=== PATIENT | male | born 1960 | race Caucasian/White ===

== ENCOUNTER 2016-10-20 14:06 | Emergency (ER) | payer MEDICAID ==
--- NOTE | 2016-10-20 14:29 | ER Document Report ---
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 of dr. riley presents today with perisstant "whole" back pain which is worse with movement from top of shoulders to below the waist. He wants something stronger than Ultram which I gave him when he was here in the ER on 10-07. He had arthritis in is t and l spine. He took his xrays to Dr. Riley. He saw the PA who told him to take the pain medications and I gave him and would not prescribe anything stronger. He has seen the tearoom host/hostess Dr. Allen in [facility] in the past. No chest pain or shortness of breath, no abdominal pain. No fever or chills. Associated Symptoms: None Past Medical History - General Information source: Patient - Social History Smoking Status: Never Smoker Frequency of alcohol use: None Drug Abuse: None Lives with: Parents Family History: Reviewed & Not Pertinent Musculoskeltal Medical History: Reports Hx Arthritis, Reports Hx Gout Psychiatric Medical History: Reports: Hx Anxiety, Hx Bipolar Disorder, Hx Depression Surgical Hx: Negative - Immunizations Immunizations up to date: Yes Hx Diphtheria, Pertussis, Tetanus Vaccination: Yes Vertical Provider Document - CONSTITUTIONAL Agree With Documented VS: Yes Exam Limitations: No Limitations General Appearance: No Apparent Distress - INFECTION CONTROL TRAVEL OUTSIDE OF THE [place] IN LAST 30 DAYS: No - RESPIRATORY O2 Sat by Pulse Oximetry: 98 Course - Re-evaluation Re-evalutation: 10/20/16 16:18 Chest x-ray is negative - Vital Signs Vital signs: Temp Pulse Resp BP Pulse Ox 97.8 F 92 18 140/84 H 98 10/20/16 14:15 10/20/16 14:15 10/20/16 14:15 10/20/16 14:15 10/20/16 14:15 Discharge - Discharge Clinical Impression: upper and lower back pain Chronic back pain Qualifiers: Back pain location: back pain in unspecified location Back pain laterality: bilateral Qualified Code(s): M54.9 - Dorsalgia, unspecified Condition: Good Disposition: HOME, SELF-CARE Instructions: Low Back Pain ([facility]), Warm Packs ([facility]), Oral Narcotic Medication ( [facility]), Upper Back Strain ([facility]), Arthritis ([facility]) Additional Instructions: see dr riley for pain management referral to er if worse the emergency room does not treat chronic pain Prescriptions: Hydrocodone Bit/Acetaminophen [Hydrocodon-Acetaminophen 5-325] 1 each PO Q4HP PRN #15 tablet PRN Reason: Referrals: GATO RILEY MD [ACTIVE STAFF] - Follow up tomorrow
[2016-10-20 16:44] VITALS: BP 136/78
== END 2016-10-20 16:44 | disposition home or self-care (01) ==
LOC: ER 14:06
DX: G89.29 Other chronic pain (principal); M54.89 Other dorsalgia; M54.5 Low back pain; M47.9 Spondylosis, unspecified; M1A.9XX0 Chronic gout, unspecified, without tophus (tophi)
CPT/HCPCS: 71020; 99283

== ENCOUNTER 2016-11-26 09:01 | Emergency (ER) | payer MEDICAID ==
--- NOTE | 2016-11-26 11:32 | ER Document Report ---
ED Extremity Problem, Upper <JOSIAH JAIN - Last Filed: 11/26/16 11:40> - General Mode of Arrival: Ambulatory Information source: Patient TRAVEL OUTSIDE OF THE [place] IN LAST 30 DAYS: No - HPI Patient complains to provider of: Left, Arm Recent injury: No Quality of pain: Achy Similar symptoms previously: Yes <BRAYDON ZUNIGA - Last Filed: 11/26/16 12:57> - General Chief Complaint: Arm Pain Stated Complaint: PAIN IN LEFT ARM Notes: Patient is a 56-year-old male that presents to the emergency department today with complaints of left upper extremity pain. Patient states his pain began yesterday and he believes it is a gout flareup because he has a history of gout. Patient states he came to the emergency department yesterday however there were "too many people here" so he left. Patient points to his forearm musculature when indicating where his pain is located. (BRAYDON ZUNIGA) - Related Data Allergies/Adverse Reactions: No Known Allergies Allergy (Verified 11/26/16 09:15) Past Medical History - General Information source: Patient - Social History Smoking Status: Never Smoker Cigarette use (# per day): No Chew tobacco use (# tins/day): No Frequency of alcohol use: None Drug Abuse: None Lives with: Family Family History: Reviewed & Not Pertinent Patient has suicidal ideation: No Patient has homicidal ideation: No Musculoskeltal Medical History: Reports Hx Arthritis, Reports Hx Gout Psychiatric Medical History: Reports: Hx Anxiety, Hx Bipolar Disorder, Hx Depression Surgical Hx: Negative - Immunizations Immunizations up to date: Yes Hx Diphtheria, Pertussis, Tetanus Vaccination: Yes <BRAYDON ZUNIGA - Last Filed: 11/26/16 12:57> Review of Systems - Review of Systems Constitutional: No symptoms reported EENT: No symptoms reported Cardiovascular: No symptoms reported Respiratory: No symptoms reported Gastrointestinal: No symptoms reported Genitourinary: No symptoms reported Male Genitourinary: No symptoms reported Musculoskeletal: See HPI, Joint pain - left upper extremity pain from shoulder to wrist Skin: No symptoms reported Hematologic/Lymphatic: No symptoms reported Neurological/Psychological: No symptoms reported -: Yes All other systems reviewed and negative <BRAYDON ZUNIGA - Last Filed: 11/26/16 12:57> Physical Exam - Vital signs Interpretation: Normal - General General appearance: Appears well, Alert In distress: None - HEENT Head: Normocephalic, Atraumatic Eyes: Normal Pupils: PERRL Neck: Normal - Respiratory Respiratory status: No respiratory distress Breath sounds: Normal - Cardiovascular Rhythm: Regular - Abdominal Inspection: Normal - Back Back: Normal - Extremities General upper extremity: Other - Left wrist elbow and shoulder do not have any effusion, swelling, warmth, or tenderness to manipulate. Left proximal dorsal forearm muscles are a little tender to palpate. There is some minimal tenderness to palpate over the lateral upper arm and deltoid. General lower extremity: Normal inspection - Neurological Neuro grossly intact: Yes - Psychological Associated symptoms: Normal affect, Normal mood - Skin Skin Temperature: Warm Skin Moisture: Dry Skin Color: Normal <JOSIAH JAIN - Last Filed: 11/26/16 11:40> Discharge <JOSIAH JAIN - Last Filed: 11/26/16 11:40> <BRAYDON ZUNIGA - Last Filed: 11/26/16 12:57> - Discharge Clinical Impression: Left arm pain Condition: Stable Disposition: HOME, SELF-CARE Additional Instructions: Your left upper extremity pain does not appear to be related to gout today. There is no pain or swelling of any of the joints. Your more tender in the muscles of the forearm than anywhere else. You should continue your regular medications, rest the arm, and follow-up with your primary care provider if not improving. Referrals: GATO DAVIS MD [ACTIVE STAFF] - Follow up as needed Scribe Attestation: 11/26/16 11:36 I personally performed the services described in the documentation, reviewed and edited the documentation which was dictated to the scribe in my presence, and it accurately records my words and actions. (JOSIAH JAIN) Scribe Documentation - Scribe Written by Barbara:: Barbara Bhakta, [id number] 11/26/16 acting as scribe for :: Vinh <BRAYDON ZUNIGA - Last Filed: 11/26/16 12:57>
[2016-11-26 12:22] VITALS: BP 132/88
== END 2016-11-26 12:00 | disposition home or self-care (01) ==
LOC: ER 09:01
DX: M79.602 Pain in left arm (principal)
CPT/HCPCS: 99283

== ENCOUNTER 2017-01-26 20:30 | Emergency (ER) | payer MEDICAID ==
--- NOTE | 2017-01-26 20:50 | EKG REPORT ---
SEVERITY:- ABNORMAL ECG - SINUS RHYTHM PROBABLE INFERIOR INFARCT, OLD : Confirmed by: Tomas Blanc 26-Jan-2017 20:48:31
[2017-01-26 21:50] LABS: ABSOLUTE EOSINOPHILS # (AUTO) 0.2 10^3/uL (0.0-0.6); ABSOLUTE LYMPHOCYTES (AUTO) 3.6 10^3/uL (0.5-4.7); ABSOLUTE MONOCYTES (AUTO) 0.8 10^3/uL (0.1-1.4); ABSOLUTE NEUT (AUTO) 3.6 10^3/uL (1.7-8.2); BASOPHILS % (AUTO) 0.5 % (0-2); HEMATOCRIT 39.4 % (37.9-51.0); HEMOGLOBIN 13.1 g/dL (13.5-17.0); HGB HCT DIFFERENCE -0.1; LYMPHOCYTES % (AUTO) 43.9 % (13-45); MEAN CORPUSCULAR HEMOGLOBIN 30.6 pg (27.0-33.4); MEAN CORPUSCULAR HGB CONC 33.3 g/dL (32.0-36.0); MEAN CORPUSCULAR VOLUME 92 fl (80-97); MONOCYTES % (AUTO) 9.5 % (3-13); RED BLOOD COUNT 4.29 10^6/uL (4.35-5.55); SEGMENTED NEUTROPHILS % (AUTO) 43.1 % (42-78); WHITE BLOOD COUNT 8.3 10^3/uL (4.0-10.5)
[2017-01-26 21:56] LABS: ALANINE AMINOTRANSFERASE 24 U/L (21-72); ALBUMIN 3.7 g/dL (3.5-5.0); ALKALINE PHOSPHATASE 81 U/L (38-126); ANION GAP 11 (5-19); ASPARTATE AMINO TRANSFERASE 18 U/L (17-59); BILIRUBIN,DIRECT 0.2 mg/dL (0.0-0.4); BILIRUBIN,TOTAL 0.3 mg/dL (0.2-1.3); BLOOD UREA NITROGEN 11 mg/dL (7-20); CALCIUM 9.4 mg/dL (8.4-10.2); CARBON DIOXIDE 26 mmol/L (22-30); CHLORIDE 106 mmol/L (98-107); CREATININE RESULT 0.82 mg/dL (0.52-1.25); GLUCOSE 91 mg/dL (75-110); POTASSIUM 4.9 mmol/L (3.6-5.0); SODIUM 143.1 mmol/L (137-145); TOTAL PROTEIN 6.2 g/dL (6.3-8.2)
--- NOTE | 2017-01-26 22:49 | ER Document Report ---
ED General - General Chief Complaint: Chest Pain Stated Complaint: CHEST WALL PAIN Notes: Patient is a 56-year-old male presents with complaint of chest pain which has been ongoing for 5 days. He says the pain is in his left upper chest and radiates back to fish shoulder blade. Does radiate around his ribs as well. His pain is worse with certain movements. Says he does have a history of gout. He is unsure if the chest pain is from the gout or from something else. He has no history of coronary disease. He had negative chronic stress test in March 2016. No fevers or infections. No difficulty breathing. Former drinker. TRAVEL OUTSIDE OF THE [place] IN LAST 30 DAYS: No - Related Data Allergies/Adverse Reactions: No Known Allergies Allergy (Verified 11/26/16 09:15) Past Medical History - Social History Smoking Status: Never Smoker Frequency of alcohol use: None Drug Abuse: None Family History: Reviewed & Not Pertinent Patient has suicidal ideation: No Patient has homicidal ideation: No - Past Medical History Cardiac Medical History: Denies: Hx Coronary Artery Disease, Hx Heart Attack, Hx Hypertension Pulmonary Medical History: Denies: Hx Asthma, Hx Bronchitis, Hx COPD, Hx Pneumonia Neurological Medical History: Denies: Hx Cerebrovascular Accident, Hx Seizures Renal/ Medical History: Denies: Hx Peritoneal Dialysis Musculoskeltal Medical History: Reports Hx Arthritis, Reports Hx Gout Psychiatric Medical History: Reports: Hx Anxiety, Hx Bipolar Disorder, Hx Depression - Immunizations Immunizations up to date: Yes Hx Diphtheria, Pertussis, Tetanus Vaccination: Yes Review of Systems - Review of Systems Notes: My Normal Review Basic REVIEW OF SYSTEMS: CONSTITUTIONAL : Denies fever, chills, or sweats. Denies recent illness. CARDIOVASCULAR: Chest pain RESPIRATORY: Denies cough, cold, or chest congestion. Denies shortness of breath, difficulty breathing, or wheezing. GASTROINTESTINAL: Denies abdominal pain. Denies nausea, vomiting, or diarrhea. Denies constipation. Last BM: GENITOURINARY: Denies difficulty urinating, painful urination, burning, frequency, or blood in urine. MUSCULOSKELETAL: Pain over left upper chest wall SKIN: Denies rash or skin lesions. NEUROLOGICAL: Denies altered mental status or loss of consciousness. Denies headache. Denies weakness or paralysis or loss of use of either side. Denies problems with gait or speech. Denies sensory or motor loss. ALL OTHER SYSTEMS REVIEWED AND NEGATIVE. Physical Exam - Vital signs Vitals: Temp Pulse Resp BP Pulse Ox 97.4 F 67 18 122/80 97 01/26/17 20:50 01/26/17 20:50 01/26/17 20:50 01/26/17 20:50 01/26/17 20:50 Course - Vital Signs Vital signs: Temp Pulse Resp BP Pulse Ox 97.4 F 67 18 122/80 97 01/26/17 20:50 01/26/17 20:50 01/26/17 20:50 01/26/17 20:50 01/26/17 20:50 - Laboratory Result Diagrams: 01/26/17 21:20 01/26/17 21:20 Laboratory results interpreted by me: 01/26/17 01/26/17 01/26/17 21:20 21:20 21:20 RBC 4.29 L Hgb 13.1 L Uric Acid 2.3 L Total Protein 6.2 L - EKG Interpretation by Me Additional EKG results interpreted by me: 01/26/17 22:48 EKG is reviewed and interpreted by me. EKG shows normal sinus rhythm with rate of [address] segment elevation or depression. No ischemic T wave inversions. NH interval, QRS duration, QTC intervals are within normal range. No old EKG available for comparison. - Transfer of Care Notes: 01/27/17 00:09 Patient's chest pain seems very muscle skeletal exam. Is easily reproducible with palpation and movement. I do not suspect coronary disease. His heart score is only 2. He looks well. I do not think it's gout. History of gas levels low and his pain is not not area that you typically expect with gout. At this time I feel he is safe to be discharged home. He had a recent stress test in March of last year, only 10 months ago. I will follow up closely with his primary care doctor. I encouraged return to ER if has changed location of his chest pain, worsening pain, or feels unwell. Patient looks very comfortable and well and exam. Patient agrees with plan. Dictation of this chart was performed using voice recognition software; therefore, there may be some unintended grammatical errors. Discharge - Discharge Clinical Impression: Chest pain Qualifiers: Chest pain type: unspecified Qualified Code(s): R07.9 - Chest pain, unspecified Condition: Good Disposition: HOME, SELF-CARE Additional Instructions: CHEST PAIN OF UNCLEAR CAUSE: The exact cause of your chest pain isn't clear. Fortunately, there is no evidence of a dangerous medical condition. Further testing may be required to find the source of the pain. Most often, we find that this pain is coming from the chest wall -- the muscles or rib joints in the chest. But chest pain can come from the lung and lung lining, the esophagus, the heart valves or heart lining, and even the stomach or gallbladder. Rest. Eat lightly until the pain is gone. We may prescribe medicine for pain and inflammation. You should call the physician immediately if the pain radiates to the shoulder, jaw or arms; if you start to run a fever or develop a cough; or if you develop shortness of breath, or other new or alarming symptoms. NORMAL EXAM AND WORKUP: At this time, your examination and workup show no significant abnormality. No significant abnormal physical findings were noted. All laboratory, EKG, and imaging (x-ray) studies that were ordered show no significant abnormality. Although your examination and all studies that were ordered showed no significant abnormal finding, there are no examinations and no studies that are 100% accurate. There is always the possibility that some abnormality could exist and not be detected with physical examination or within the limits and capabilities of laboratory and other studies. You should return or follow up as you were instructed on your visit today for further evaluation if your symptoms do not resolve. CHEST WALL PAIN: Your chest pain may be coming from the chest wall. This is often caused by straining the muscles or joints in the chest during physical activity, direct trauma, coughing, or vigorous vomiting. Persons with arthritis are especially prone to this type of pain, due to inflammation of the cartilage joints near the breast bone. Occasionally, no cause can be found. Rest from strenuous physical activity. This kind of chest pain is usually made worse by movement of the chest. Depending on the symptoms, we may prescribe medicine for pain, muscle relaxation, and antiinflammatory effects. If the pain is new, and seems to be due to muscle strain, cold packs can help. Otherwise, apply gentle warmth to the painful area for 15 minutes every hour or two. You should call contact the doctor immediately if things change. Further evaluation is needed if you develop a fever or cough, if the nature of the pain changes, or if you become short of breath. ORAL NARCOTIC MEDICATION: You have been given a prescription for pain control. This medication is a narcotic. It's best taken with food, as nausea can result if taken on an empty stomach. Don't operate machinery or drive within six hours of taking this medication. Do not combine this medicine with alcohol, or with any medication which can cause sedation (such as cold tablets or sleeping pills) unless you get permission from the physician. Narcotics tend to cause constipation. If possible, drink plenty of fluids and eat a diet high in fiber and fruits. Please be aware that prescription narcotics also have the potential for abuse. People become addicted to these medications because of the general sense of wellbeing that they induce. This feeling along with a significant reduction in tension, anxiety, and aggression provides a stimulating seductive quality to these drugs. Once your pain is under control, we encourage you to discard your unused narcotics. FOLLOW-UP CARE: If you have been referred to a physician for follow-up care, call the physician s office for an appointment as you were instructed or within the next two days. If you experience worsening or a significant change in your symptoms, notify the physician immediately or return to the Emergency Department at any time for re-evaluation. Please follow up closely with your doctor for reevaluation in 2-3 days. please return to the ER immediately if you have worse ing pain, difficulty breathing, or change of location of the pain in your chest. Prescriptions: Tramadol HCl [Ultram] 50 mg PO Q6 PRN #14 tablet PRN Reason: For Pain Scale 3-5 Referrals: SPEEDY JAMES NP-C [Primary Care Provider] - 01/28/17
[2017-01-26 23:26] LABS: URIC ACID 2.3 mg/dL (3.5-8.5)
[2017-01-26 23:39] LABS: CREATINE KINASE MB 0.99 ng/mL (<4.55)
[2017-01-26 23:41] LABS: TROPONIN I < 0.012 ng/mL
[2017-01-27 00:31] VITALS: BP 130/87
== END 2017-01-27 00:30 | disposition home or self-care (01) ==
LOC: ER 20:30
DX: R07.89 Other chest pain (principal); Z87.39 Personal history of other diseases of the musculoskeletal system and connective tissue
CPT/HCPCS: 36415; 71010; 80053; 82550; 82553; 83605; 84484; 84550; 85025; 93005; 93010; 99285

== ENCOUNTER 2018-02-04 05:56 | Emergency (ER) | payer MEDICAID ==
[2018-02-04] MEDS ORDERED: PREDNISONE 20 MG TABLET PO ONE (06:33)
[2018-02-04] MEDS ORDERED: KETOROLAC TROMETHAMINE 60 MG/2 ML SDV IM ONE (06:34)
--- NOTE | 2018-02-04 06:37 | ER Document Report ---
ED General - General Chief Complaint: Knee Pain Stated Complaint: BODY PAIN Time Seen by Provider: 02/04/18 06:18 TRAVEL OUTSIDE OF THE [place] IN LAST 30 DAYS: No - Related Data Allergies/Adverse Reactions: No Known Allergies Allergy (Verified 11/26/16 09:15) Past Medical History - Social History Smoking Status: Never Smoker Chew tobacco use (# tins/day): No Frequency of alcohol use: None Drug Abuse: None Family History: Reviewed & Not Pertinent Patient has suicidal ideation: No Patient has homicidal ideation: No - Past Medical History Cardiac Medical History: Denies: Hx Coronary Artery Disease, Hx Heart Attack, Hx Hypertension Pulmonary Medical History: Denies: Hx Asthma, Hx Bronchitis, Hx COPD, Hx Pneumonia Neurological Medical History: Denies: Hx Cerebrovascular Accident, Hx Seizures Renal/ Medical History: Denies: Hx Peritoneal Dialysis Musculoskeltal Medical History: Reports Hx Arthritis, Reports Hx Gout Psychiatric Medical History: Reports: Hx Anxiety, Hx Bipolar Disorder, Hx Depression - Immunizations Immunizations up to date: Yes Hx Diphtheria, Pertussis, Tetanus Vaccination: Yes Physical Exam - Vital signs Vitals: Temp Pulse Resp BP Pulse Ox 97.7 F 106 H 18 136/81 H 95 02/04/18 06:03 02/04/18 06:03 02/04/18 06:03 02/04/18 06:03 02/04/18 06:03 Course - Vital Signs Vital signs: Temp Pulse Resp BP Pulse Ox 97.7 F 106 H 18 136/81 H 95 02/04/18 06:03 02/04/18 06:03 02/04/18 06:03 02/04/18 06:03 02/04/18 06:03 Discharge - Discharge Clinical Impression: Gout Qualifiers: Gout site: unspecified site Gout etiology: unspecified cause Chronicity: unspecified Qualified Code(s): M10.9 - Gout, unspecified Condition: Good Instructions: Ice & Elevation ([facility]), Oral Narcotic Medication ([facility]), Gout Diet ([facility]), Gout ([facility]) Additional Instructions: Your evaluation today is consistent with a gout flare. Please continue your home medication take prednisone as prescribed he may take the hydrocodone to for pain control please do not mix Hydrocodone with your tramadol return to ER if symptoms worsen. Prescriptions: Hydrocodone/Acetaminophen [Hydrocodon-Acetaminophen 5-325] 1 each PO Q6 PRN #10 tablet PRN Reason: Prednisone [Deltasone] 60 mg PO DAILY #24 tablet
[2018-02-04 06:59] VITALS: BP 125/94
--- NOTE | 2018-02-04 07:08 | ER Document Report ---
ED General - General Chief Complaint: Knee Pain Stated Complaint: BODY PAIN Time Seen by Provider: 02/04/18 06:18 TRAVEL OUTSIDE OF THE [place] IN LAST 30 DAYS: No - HPI Patient complains to provider of: Body pain knee pain foot pain Notes: Patient coming in with a history of diffuse gout states most pain left foot. Patient states ongoing for the last few days recently saw his PCP requesting cortisone however PCP request patient see his groundman for present medication patient states he is taking his allopurinol and indomethacin at home with no relief. Also states he is on tramadol with no relief in his pain. Otherwise denies fevers chills nausea vomiting resting comfortably, evaluation. - Related Data Allergies/Adverse Reactions: No Known Allergies Allergy (Verified 11/26/16 09:15) Past Medical History - Social History Smoking Status: Never Smoker Chew tobacco use (# tins/day): No Frequency of alcohol use: None Drug Abuse: None Family History: Reviewed & Not Pertinent Patient has suicidal ideation: No Patient has homicidal ideation: No - Past Medical History Cardiac Medical History: Denies: Hx Coronary Artery Disease, Hx Heart Attack, Hx Hypertension Pulmonary Medical History: Denies: Hx Asthma, Hx Bronchitis, Hx COPD, Hx Pneumonia Neurological Medical History: Denies: Hx Cerebrovascular Accident, Hx Seizures Renal/ Medical History: Denies: Hx Peritoneal Dialysis Musculoskeltal Medical History: Reports Hx Arthritis, Reports Hx Gout Psychiatric Medical History: Reports: Hx Anxiety, Hx Bipolar Disorder, Hx Depression - Immunizations Immunizations up to date: Yes Hx Diphtheria, Pertussis, Tetanus Vaccination: Yes Review of Systems - Review of Systems Constitutional: No symptoms reported EENT: No symptoms reported Cardiovascular: No symptoms reported Respiratory: No symptoms reported Gastrointestinal: No symptoms reported Genitourinary: No symptoms reported Male Genitourinary: No symptoms reported Musculoskeletal: Gout Skin: No symptoms reported Hematologic/Lymphatic: No symptoms reported Neurological/Psychological: No symptoms reported -: Yes All other systems reviewed and negative Physical Exam - Vital signs Vitals: Temp Pulse Resp BP Pulse Ox 97.7 F 106 H 18 136/81 H 95 02/04/18 06:03 02/04/18 06:03 02/04/18 06:03 02/04/18 06:03 02/04/18 06:03 Interpretation: Normal - General General appearance: Appears well, Alert - HEENT Head: Normocephalic, Atraumatic Eyes: Normal Pupils: PERRL - Respiratory Respiratory status: No respiratory distress Chest status: Nontender Breath sounds: Normal Chest palpation: Normal - Cardiovascular Rhythm: Regular Heart sounds: Normal auscultation Murmur: No - Abdominal Inspection: Normal Distension: No distension Bowel sounds: Normal Tenderness: Nontender Organomegaly: No organomegaly - Back Back: Normal, Nontender - Extremities General upper extremity: Normal inspection, Nontender, Normal color, Normal ROM , Normal temperature General lower extremity: Nontender, Normal color, Normal ROM, Normal temperature , Normal weight bearing. No: Normal inspection - Redness and swelling in the MCP joint consistent with gout on the left foot, Franky's sign - Neurological Neuro grossly intact: Yes Cognition: Normal Orientation: AAOx4 Aladdin Coma Scale Eye Opening: Spontaneous Aladdin Coma Scale Verbal: Oriented Aladdin Coma Scale Motor: Obeys Commands Sara Coma Scale Total: 15 Speech: Normal Motor strength normal: LUE, RUE, LLE, RLE Sensory: Normal - Psychological Associated symptoms: Normal affect, Normal mood - Skin Skin Temperature: Warm Skin Moisture: Dry Skin Color: Normal Course - Re-evaluation Re-evalutation: 02/04/18 07:06 Patient has signs or symptoms of acute gout attack will start patient on a prednisone taper along with will give the patient 10 hydrocodone for his pain. Patient was encouraged follow-up with his PCP and groundman. - Vital Signs Vital signs: Temp Pulse Resp BP Pulse Ox 97.3 F 104 H 16 125/94 H 95 02/04/18 06:58 02/04/18 06:58 02/04/18 06:58 02/04/18 06:58 02/04/18 06:58 Discharge - Discharge Clinical Impression: Gout Qualifiers: Gout site: unspecified site Gout etiology: unspecified cause Chronicity: unspecified Qualified Code(s): M10.9 - Gout, unspecified Condition: Good Instructions: Gout ([facility]), Gout Diet ([facility]), Ice & Elevation ([facility]), Oral Narcotic Medication ([facility]) Additional Instructions: Your evaluation today is consistent with a gout flare. Please continue your home medication take prednisone as prescribed he may take the hydrocodone to for pain control please do not mix Hydrocodone with your tramadol return to ER if symptoms worsen. Prescriptions: Hydrocodone/Acetaminophen [Hydrocodon-Acetaminophen 5-325] 1 each PO Q6 PRN #10 tablet PRN Reason: Prednisone [Deltasone] 60 mg PO DAILY #24 tablet Referrals: SETH BOWEN PA-C [NO LOCAL MD] - Follow up as needed
== END 2018-02-04 06:59 | disposition home or self-care (01) ==
LOC: ER 05:56
DX: M10.9 Gout, unspecified (principal); M25.569 Pain in unspecified knee; M79.1 Myalgia; M79.672 Pain in left foot
CPT/HCPCS: 99283; 96372; J1885; J7512

== ENCOUNTER 2018-02-19 05:41 | Emergency (ER) | payer MEDICAID ==
--- NOTE | 2018-02-19 06:27 | ER Document Report ---
ED General - General Chief Complaint: High Blood Pressure Stated Complaint: HIGH BLOOD PRESSURE Time Seen by Provider: 02/19/18 06:17 Notes: 57-year-old male with history of gout. History of hypertension. Has been having a gout flareup for the last couple of days. Has not been taking any of his medications. Blood pressure is a little high according to patient. Denies any chest pain or shortness of breath. Pain is mostly in the left great toe. TRAVEL OUTSIDE OF THE [place] IN LAST 30 DAYS: No - HPI Onset: Yesterday Onset/Duration: Intermittent, Worse Quality of pain: Throbbing - Related Data Allergies/Adverse Reactions: No Known Allergies Allergy (Verified 11/26/16 09:15) Past Medical History - General Information source: Patient - Social History Smoking Status: Former Smoker Cigarette use (# per day): No Frequency of alcohol use: None Drug Abuse: None Lives with: Family Family History: Reviewed & Not Pertinent - Past Medical History Cardiac Medical History: Denies: Hx Coronary Artery Disease, Hx Heart Attack, Hx Hypertension Pulmonary Medical History: Denies: Hx Asthma, Hx Bronchitis, Hx COPD, Hx Pneumonia Neurological Medical History: Denies: Hx Cerebrovascular Accident, Hx Seizures Renal/ Medical History: Denies: Hx Peritoneal Dialysis Musculoskeltal Medical History: Reports Hx Arthritis, Reports Hx Gout Psychiatric Medical History: Reports: Hx Anxiety, Hx Bipolar Disorder, Hx Depression - Immunizations Immunizations up to date: Yes Hx Diphtheria, Pertussis, Tetanus Vaccination: Yes Review of Systems - Review of Systems Constitutional: No symptoms reported EENT: No symptoms reported Cardiovascular: No symptoms reported Respiratory: No symptoms reported Gastrointestinal: No symptoms reported Genitourinary: No symptoms reported Male Genitourinary: No symptoms reported Musculoskeletal: See HPI, Other - Pain, toe pain. Skin: No symptoms reported Hematologic/Lymphatic: No symptoms reported Neurological/Psychological: No symptoms reported Physical Exam - Vital signs Vitals: Temp Pulse Resp BP Pulse Ox 97.8 F 82 16 129/98 H 95 02/19/18 05:55 02/19/18 05:55 02/19/18 05:55 02/19/18 05:55 02/19/18 05:55 Interpretation: Normal - General General appearance: Appears well, Alert - HEENT Head: Normocephalic, Atraumatic Eyes: Normal Pupils: PERRL - Respiratory Respiratory status: No respiratory distress Chest status: Nontender Breath sounds: Normal Chest palpation: Normal - Cardiovascular Rhythm: Regular Heart sounds: Normal auscultation Murmur: No - Abdominal Inspection: Normal Distension: No distension Bowel sounds: Normal Tenderness: Nontender Organomegaly: No organomegaly - Back Back: Normal, Nontender - Extremities General upper extremity: Normal inspection, Nontender, Normal color, Normal ROM , Normal temperature General lower extremity: Normal inspection, Nontender, Normal color, Normal ROM , Normal temperature, Normal weight bearing, Other - Mild tenderness to palpation left great toe. No: Edema, Franky's sign - Neurological Neuro grossly intact: Yes Cognition: Normal Orientation: AAOx4 Sara Coma Scale Eye Opening: Spontaneous Sara Coma Scale Verbal: Oriented Prewitt Coma Scale Motor: Obeys Commands Sara Coma Scale Total: 15 Speech: Normal Motor strength normal: LUE, RUE, LLE, RLE Sensory: Normal - Psychological Associated symptoms: Normal affect, Normal mood - Skin Skin Temperature: Warm Skin Moisture: Dry Skin Color: Normal Course - Re-evaluation Re-evalutation: 02/19/18 06:39 Patient with long history of gout. Has all the medications as needed. Has colchicine. Has indomethacin. Recommend that he takes cursing at this time. Recommended he start his indomethacin. We will give him some steroids and shot of fentanyl and 1 hydrocodone and will DC. - Vital Signs Vital signs: Temp Pulse Resp BP Pulse Ox 97.6 F 84 18 124/87 H 99 02/19/18 08:09 02/19/18 08:09 02/19/18 08:09 02/19/18 08:09 02/19/18 08:09 Discharge - Discharge Clinical Impression: Gout Qualifiers: Gout site: foot Gout etiology: unspecified cause Chronicity: chronic Laterality : left Qualified Code(s): M1A.0720 - Idiopathic chronic gout, left ankle and foot, without tophus (tophi) Condition: Good Disposition: HOME, SELF-CARE Instructions: Gout ([facility]), Gout Diet ([facility])
[2018-02-19] MEDS ORDERED: METHYLPREDNISOLONE INJ 125 MG/2 ML SDV IM ONE (06:38)
[2018-02-19] MEDS ORDERED: HYDROCODONE/ACETAMINOPHEN 5-325 MG TABLET PO ONE (06:38)
[2018-02-19] MEDS ORDERED: FENTANYL CITRATE INJ/PF 100 MCG/2 ML AMPUL IM ONE (06:38)
[2018-02-19 08:10] VITALS: BP 124/87
== END 2018-02-19 08:07 | disposition home or self-care (01) ==
LOC: ER 05:41
DX: M1A.0720 Idiopathic chronic gout, left ankle and foot, without tophus (tophi) (principal); I10 Essential (primary) hypertension; Z87.891 Personal history of nicotine dependence
CPT/HCPCS: 99283; 96372; 96374; J3010; J2930

== ENCOUNTER → 2018-02-19 | Outpatient (CLI) | payer MEDICAID ==
[2018-02-19 13:22] LABS: ALANINE AMINOTRANSFERASE 25 U/L (21-72); ALBUMIN 4.4 g/dL (3.5-5.0); ALKALINE PHOSPHATASE 81 U/L (38-126); ANION GAP 13 (5-19); ASPARTATE AMINO TRANSFERASE 20 U/L (17-59); BILIRUBIN,DIRECT 0.3 mg/dL (0.0-0.4); BILIRUBIN,TOTAL 0.3 mg/dL (0.2-1.3); BLOOD UREA NITROGEN 19 mg/dL (7-20); CALCIUM 10.1 mg/dL (8.4-10.2); CARBON DIOXIDE 27 mmol/L (22-30); CHLORIDE 107 mmol/L (98-107); GLUCOSE 101 mg/dL (75-110); POTASSIUM 4.8 mmol/L (3.6-5.0); SODIUM 146.5 mmol/L (137-145); TOTAL PROTEIN 7.4 g/dL (6.3-8.2); URIC ACID 2.7 mg/dL (3.5-8.5)
== END ==
LOC: OD 12:31
PROVIDERS: ATTEND Internal Medicine Geriatric Medicine
DX: M1A.0211 Idiopathic chronic gout, right elbow, with tophus (tophi) (principal); I10 Essential (primary) hypertension
CPT/HCPCS: 36415; 80053; 84550

== ENCOUNTER 2018-05-08 06:20 | Emergency (ER) | payer MEDICAID ==
[2018-05-08] MEDS ORDERED: DEXAMETHASONE SOD PHOS INJ 10 MG/1 ML VIAL IM ONE (07:30)
--- NOTE | 2018-05-08 07:30 | ER Document Report ---
ED Extremity Problem, Upper - General Chief Complaint: Arm Pain Stated Complaint: LEFT ARM PAIN Time Seen by Provider: 05/08/18 07:19 Mode of Arrival: Ambulatory Information source: Patient Notes: Patient is a 58-year-old male with a history of gout who presents to the ER today for left elbow and shoulder pain that started approximately 3 weeks ago. Patient states that he is on colchicine, Uloric and Indocin for his gout which are not helping. He states that he tries to stay away from all bad gout foods and does not know what he may have eaten lately that could have caused this gout flare. He states that he has gout flares "all the time." Patient states prednisone usually helps. He denies any injury. He denies any fevers or chills. TRAVEL OUTSIDE OF THE [place] IN LAST 30 DAYS: No - Related Data Allergies/Adverse Reactions: No Known Allergies Allergy (Verified 11/26/16 09:15) Past Medical History - General Information source: Patient - Social History Smoking Status: Never Smoker Family History: Reviewed & Not Pertinent Patient has suicidal ideation: No Patient has homicidal ideation: No - Past Medical History Cardiac Medical History: Denies: Hx Coronary Artery Disease, Hx Heart Attack, Hx Hypertension Pulmonary Medical History: Denies: Hx Asthma, Hx Bronchitis, Hx COPD, Hx Pneumonia Neurological Medical History: Denies: Hx Cerebrovascular Accident, Hx Seizures Renal/ Medical History: Denies: Hx Peritoneal Dialysis Musculoskeletal Medical History: Reports Hx Arthritis, Reports Hx Gout Psychiatric Medical History: Reports: Hx Anxiety, Hx Bipolar Disorder, Hx Depression - Immunizations Immunizations up to date: Yes Hx Diphtheria, Pertussis, Tetanus Vaccination: Yes Review of Systems - Review of Systems Constitutional: No symptoms reported EENT: No symptoms reported Cardiovascular: No symptoms reported Respiratory: No symptoms reported Gastrointestinal: No symptoms reported Genitourinary: No symptoms reported Male Genitourinary: No symptoms reported Musculoskeletal: See HPI Skin: No symptoms reported Hematologic/Lymphatic: No symptoms reported Neurological/Psychological: No symptoms reported Physical Exam - Vital signs Vitals: Temp Pulse Resp BP Pulse Ox 97.8 F 79 16 112/64 93 05/08/18 06:24 05/08/18 06:24 05/08/18 06:24 05/08/18 06:24 05/08/18 06:24 - Notes Notes: PHYSICAL EXAMINATION: GENERAL: Well-appearing and in no acute distress. HEAD: Atraumatic, normocephalic. EYES: Pupils equal round and reactive to light, extraocular movements intact, sclera anicteric, conjunctiva are normal. NECK: Normal range of motion, supple without lymphadenopathy LUNGS: CTAB and equal. No wheezes rales or rhonchi. HEART: Regular rate and rhythm without murmurs EXTREMITIES: Mild tenderness to the left dorsal elbow and anterior shoulder, otherwise normal range of motion, no pitting edema. No cyanosis. NEUROLOGICAL: Cranial nerves grossly intact. Normal sensory/motor exams. PSYCH: Normal mood, normal affect. SKIN: Warm, Dry, normal turgor, no rashes or lesions noted Course - Vital Signs Vital signs: Temp Pulse Resp BP Pulse Ox 97.4 F 61 18 124/83 98 05/08/18 07:54 05/08/18 07:54 05/08/18 07:54 05/08/18 07:54 05/08/18 07:54 Discharge - Discharge Clinical Impression: Gout Qualifiers: Gout site: multiple sites Gout etiology: unspecified cause Chronicity: acute Qualified Code(s): M10.9 - Gout, unspecified Condition: Stable Disposition: HOME, SELF-CARE Additional Instructions: Return immediately for any new or worsening symptoms. Follow up with primary care provider, call tomorrow to make followup appointment. Prescriptions: Prednisone 10 mg PO DAILY #1 [id number] Referrals: GATO DAVIS MD [Primary Care Provider] - Follow up as needed
[2018-05-08 07:56] VITALS: BP 124/83
== END 2018-05-08 07:56 | disposition home or self-care (01) ==
LOC: ER 06:20
DX: M10.9 Gout, unspecified (principal); M25.522 Pain in left elbow; M25.512 Pain in left shoulder; Z79.899 Other long term (current) drug therapy; Z79.1 Long term (current) use of non-steroidal anti-inflammatories (NSAID)
CPT/HCPCS: 99283; 96372; J1100

== ENCOUNTER 2018-11-22 09:53 | Emergency (ER) | payer MEDICAID ==
[2018-11-22 10:01] VITALS: BP 113/72
[2018-11-22] MEDS ORDERED: DEXAMETHASONE SOD PHOS INJ 10 MG/1 ML VIAL IM ONE (10:06)
--- NOTE | 2018-11-22 10:10 | ER Document Report ---
ED General - General Chief Complaint: Pain All Over Stated Complaint: BLOOD PRESSURE ISSUE Time Seen by Provider: 11/22/18 10:05 Primary Care Provider: GATO DAVIS MD [Primary Care Provider] - Follow up as needed TRAVEL OUTSIDE OF THE [place] IN LAST 30 DAYS: No - HPI Patient complains to provider of: Blood pressure concern body pain Notes: Patient coming in stating his blood pressure has been elevated liver last few days. Patient is drinking [employer] T patient states he has not been watching his diet well he has been drinking a lot of water. Patient denies missing any of his medications. At this time patient's blood pressure looks to be within normal limits. Patient also is complaining of diffuse body pain consistent with his gout flares in the past. Patient currently is in pain management states he has been compliant with his pain management regimen. Patient is asking for steroid injection. Patient denies any chest pain head pain abdominal pain nausea vomiting diarrhea denies any fevers or chills - Related Data Allergies/Adverse Reactions: No Known Allergies Allergy (Verified 11/22/18 09:54) Past Medical History - Social History Smoking Status: Unknown if Ever Smoked Family History: Reviewed & Not Pertinent Patient has suicidal ideation: No Patient has homicidal ideation: No - Past Medical History Cardiac Medical History: Denies: Hx Coronary Artery Disease, Hx Heart Attack, Hx Hypertension Pulmonary Medical History: Denies: Hx Asthma, Hx Bronchitis, Hx COPD, Hx Pneumonia Neurological Medical History: Denies: Hx Cerebrovascular Accident, Hx Seizures Renal/ Medical History: Denies: Hx Peritoneal Dialysis Musculoskeletal Medical History: Reports Hx Arthritis, Reports Hx Gout Psychiatric Medical History: Reports: Hx Anxiety, Hx Bipolar Disorder, Hx Depression - Immunizations Immunizations up to date: Yes Hx Diphtheria, Pertussis, Tetanus Vaccination: Yes Review of Systems - Review of Systems Constitutional: Other - Elevated blood pressure EENT: No symptoms reported Cardiovascular: No symptoms reported Respiratory: No symptoms reported Gastrointestinal: No symptoms reported Genitourinary: No symptoms reported Male Genitourinary: No symptoms reported Musculoskeletal: Muscle pain Skin: No symptoms reported Hematologic/Lymphatic: No symptoms reported Neurological/Psychological: No symptoms reported -: Yes All other systems reviewed and negative Physical Exam - Vital signs Vitals: Temp Pulse Resp BP Pulse Ox 97.7 F 84 17 113/72 94 11/22/18 10:00 11/22/18 10:00 11/22/18 10:00 11/22/18 10:00 11/22/18 10:00 Interpretation: Normal - General General appearance: Appears well, Alert - HEENT Head: Normocephalic, Atraumatic Eyes: Normal Pupils: PERRL - Respiratory Respiratory status: No respiratory distress Chest status: Nontender Breath sounds: Normal Chest palpation: Normal - Cardiovascular Rhythm: Regular Heart sounds: Normal auscultation Murmur: No - Abdominal Inspection: Normal Distension: No distension Bowel sounds: Normal Tenderness: Nontender Organomegaly: No organomegaly - Back Back: Normal, Nontender - Extremities General upper extremity: Normal inspection, Nontender, Normal color, Normal ROM, Normal temperature General lower extremity: Normal inspection, Nontender, Normal color, Normal ROM, Normal temperature, Normal weight bearing. No: Franky's sign - Neurological Neuro grossly intact: Yes Cognition: Normal Orientation: AAOx4 Sara Coma Scale Eye Opening: Spontaneous Sara Coma Scale Verbal: Oriented Sara Coma Scale Motor: Obeys Commands Gallagher Coma Scale Total: 15 Speech: Normal Motor strength normal: LUE, RUE, LLE, RLE Sensory: Normal - Psychological Associated symptoms: Normal affect, Normal mood - Skin Skin Temperature: Warm Skin Moisture: Dry Skin Color: Normal Course - Re-evaluation Re-evalutation: 11/22/18 10:10 No critical pathology seen on physical examination patient is asking for a long- acting steroid injection will give the patient a dose of Decadron patient will be discharged home. - Vital Signs Vital signs: Temp Pulse Resp BP Pulse Ox 97.7 F 84 17 113/72 94 11/22/18 10:00 11/22/18 10:11/22/18 10:00 11/22/18 10:00 11/22/18 10:00 Discharge - Discharge Clinical Impression: History of hypertension, History of gout Condition: Good Disposition: HOME, SELF-CARE Instructions: Pain Control without Medication ([facility]), Pain Management, High Blood Pressure ([facility]) Additional Instructions: Blood pressure today looks to be within normal limits please continue take your blood pressure medications as prescribed. Please continue take your current medication pain medication regimen at home he was given a long-acting steroid today called Decadron. Return to the ER symptoms worsen. Referrals: GATO DAVIS MD [Primary Care Provider] - Follow up tomorrow
== END 2018-11-22 10:10 | disposition home or self-care (01) ==
LOC: ER 09:53
DX: M79.10 Myalgia, unspecified site (principal)
CPT/HCPCS: 99283; 96372; J1100

== ENCOUNTER 2020-02-26 14:16 | Inpatient (IN) | payer MEDICAID ==
--- NOTE | 2020-02-26 15:11 | ER Document Report ---
ED Fall - General Chief Complaint: Fall Stated Complaint: BACK PAIN Time Seen by Provider: 02/26/20 15:11 Primary Care Provider: GATO DAVIS MD [Primary Care Provider] - Follow up as needed Notes: Patient is a 59-year-old male presents emergency department after a fall. Patient states that he fell last night. He has a automatic chair that helps assist with standing him, and he states that he went to go stand up and fell down to the floor. Patient stayed on the floor for quite a long time and then he was able to get up because he ended up urinating on himself. Patient states that he got up and was able to take shower and then called EMS. Patient also has had some chronic Pain. He also has some edema to his bilateral lower extremities. States that his heel on his left foot is hurting. Its that he has been using Neosporin. TRAVEL OUTSIDE OF THE [place] IN LAST 30 DAYS: No - Related data Allergies/Adverse Reactions: No Known Allergies Allergy (Verified 11/22/18 09:54) Past Medical History - Social History Smoking Status: Unknown if Ever Smoked Family History: Reviewed & Not Pertinent Patient has homicidal ideation: No - Past Medical History Cardiac Medical History: Denies: Hx Coronary Artery Disease, Hx Heart Attack, Hx Hypertension Pulmonary Medical History: Denies: Hx Asthma, Hx Bronchitis, Hx COPD, Hx Pneumonia Neurological Medical History: Denies: Hx Cerebrovascular Accident, Hx Seizures Renal/ Medical History: Denies: Hx Peritoneal Dialysis Musculoskeletal Medical History: Reports Hx Arthritis, Reports Hx Gout Psychiatric Medical History: Reports: Hx Anxiety, Hx Bipolar Disorder, Hx Depression - Immunizations Immunizations up to date: Yes Hx Diphtheria, Pertussis, Tetanus Vaccination: Yes Review of Systems - Review of Systems Notes: REVIEW OF SYSTEMS: CONSTITUTIONAL : Denies recent illness. Denies recent unintentional weight loss. Denies fever, chills, or sweats. EENT: Denies eye, ear, throat, or mouth pain, discharge, or symptoms. Denies nasal or sinus congestion. CARDIOVASCULAR: Denies chest pain. RESPIRATORY: Denies shortness of breath, cough, congestion, difficulty breathing, or wheezing. GASTROINTESTINAL: Denies nausea, vomiting, and diarrhea. Denies abdominal pain. Denies constipation. GENITOURINARY: Denies difficulty urinating, burning, blood in urine, urgency or frequency. MUSCULOSKELETAL: See HPI. SKIN: Denies rash, itchiness, or lesions HEMATOLOGIC : Denies easy bruising or bleeding. LYMPHATIC: Denies swollen, painful, enlarged glands. NEUROLOGICAL: Denies no numbness or tingling denies weakness. Denies headache. Denies altered mental status. Denies alteration in speech. PSYCHIATRIC: Denies stress, anxiety, alteration in sleep patterns, or depression. All other systems reviewed and negative. Physical Exam - Vital signs Vitals: Resp Pulse Ox 20 96 02/26/20 14:29 02/26/20 14:29 - Notes Notes: PHYSICAL EXAMINATION: GENERAL: Appears well, healthy, well-nourished, no acute distress. HEAD: Normocephalic, atraumatic. EYES: PERRL, conjunctiva normal, all extraocular movements intact, sclera nonicteric ENT: Moist mucous membranes. NECK: Supple, no noticeable swelling, redness, rash. Normal range of motion. LUNGS: Equal breath sounds bilaterally and clear to auscultation. No wheezes rales or rhonchi. CARDIOVASCULAR: S1-S2, regular rate, regular rhythm. Radial pulses 2+, normal. ABDOMEN: Normoactive bowel sounds. Soft, nontender, no guarding, no rebound tenderness, and no masses palpated. EXTREMITIES: Normal strength and range of motion, no pitting or edema. No cyanosis. NEUROLOGICAL: Moves all extremities upon command. Strength 5/5 in all extremities. PSYCH: Normal mood, normal affect. SKIN: Warm, dry. Erythema to bottom of left foot. Course - Re-evaluation Re-evalutation: 02/26/20 16:42 Patient's blood pressure has improved to 130/84. He has a leukocytosis of 16,400 with a left shift. Chest x-ray is unremarkable. Patient has a mildly elevated creatinine, which is being fixed with IV fluids. BNP is mildly elevated unremarkable. Awaiting urinalysis. Patient does have cellulitis to his left foot. Due to him being septic, and with lower blood pressures, I prefer he be admitted to the hospital. I spoke with patient and he agrees, as he lives by himself and nobody can watch after him. 02/26/20 17:[address] Marcia Genao, and the patient will be admitted to [facility]. - Vital Signs Vital signs: Temp Pulse Resp BP Pulse Ox 98.4 F 21 H 130/84 H 100 02/26/20 14:32 02/26/20 16:37 02/26/20 16:37 02/26/20 16:37 - Laboratory Result Diagrams: 02/26/20 13:55 02/26/20 13:55 Laboratory results interpreted by me: 02/26/20 02/26/20 02/26/20 13:55 13:55 13:55 WBC 16.4 H RBC 4.06 L Hgb 12.6 L Hct 37.7 L Lymph % (Auto) 12.2 L Absolute Neuts (auto) 13.1 H Seg Neutrophils % 80.3 H Sodium 136.0 L BUN 27 H Creatinine 1.52 H Est GFR ( Amer) 57 L Est GFR (MDRD) Non-Af 47 L Glucose 122 H AST 90 H NT-Pro-B Natriuret Pep 195 H Discharge - Discharge Clinical Impression: Sepsis Qualifiers: Sepsis type: sepsis due to unspecified organism Sepsis acute organ dysfunction status: unspecified Qualified Code(s): A41.9 - Sepsis, unspecified organism Cellulitis Qualifiers: Site of cellulitis: extremity Site of cellulitis of extremity: lower extremity Laterality: left Qualified Code(s): L03.116 - Cellulitis of left lower limb Condition: Fair Disposition: ADMITTED INPATIENT Admitting Provider: Alexandru Unit Admitted: [facility] Referrals: GATO DAVIS MD [Primary Care Provider] - Follow up as needed
[2020-02-26] MEDS ORDERED: NORMAL SALINE 1000 ML 1,000 ML IV ONE (15:38)
[2020-02-26 15:55] LABS: ABSOLUTE MONOCYTES (AUTO) 1.2 10^3/uL (0.1-1.4); ABSOLUTE NEUT (AUTO) 13.1 10^3/uL (1.7-8.2); BASOPHILS % (AUTO) 0.2 % (0-2); EOSINOPHILS % (AUTO) 0.1 % (0-6); HEMATOCRIT 37.7 % (37.9-51.0); HEMOGLOBIN 12.6 g/dL (13.5-17.0); LYMPHOCYTES % (AUTO) 12.2 % (13-45); MEAN CORPUSCULAR HEMOGLOBIN 31.1 pg (27.0-33.4); MEAN CORPUSCULAR HGB CONC 33.5 g/dL (32.0-36.0); MEAN CORPUSCULAR VOLUME 93 fl (80-97); MONOCYTES % (AUTO) 7.2 % (3-13); PLATELET COUNT 235 10^3/uL (150-450); RED BLOOD COUNT 4.06 10^6/uL (4.35-5.55); SEGMENTED NEUTROPHILS % (AUTO) 80.3 % (42-78); TOTAL CELLS COUNTED % (AUTO) 100 %; WHITE BLOOD COUNT 16.4 10^3/uL (4.0-10.5)
[2020-02-26 15:58] LABS: ALBUMIN 3.9 g/dL (3.5-5.0); ALKALINE PHOSPHATASE 71 U/L (38-126); ANION GAP 8 (5-19); ASPARTATE AMINO TRANSFERASE 90 U/L (17-59); BILIRUBIN,TOTAL 0.5 mg/dL (0.2-1.3); BLOOD UREA NITROGEN 27 mg/dL (7-20); CALCIUM 9.1 mg/dL (8.4-10.2); CARBON DIOXIDE 25 mmol/L (22-30); CHLORIDE 103 mmol/L (98-107); GLUCOSE 122 mg/dL (75-110); POTASSIUM 4.5 mmol/L (3.6-5.0); TOTAL PROTEIN 6.7 g/dL (6.3-8.2)
--- NOTE | 2020-02-26 16:30 | RADIOLOGY REPORT (SQ) ---
EXAM DESCRIPTION: CHEST SINGLE VIEW IMAGES COMPLETED DATE/TIME: 02/26/2020 4:20 pm REASON FOR STUDY: fall COMPARISON: 10/20/2016 EXAM PARAMETERS: NUMBER OF VIEWS: One view. TECHNIQUE: Single frontal radiographic view of the chest acquired. RADIATION DOSE: NA LIMITATIONS: None. FINDINGS: LUNGS AND PLEURA: No opacities, masses or pneumothorax. No pleural effusion. MEDIASTINUM AND HILAR STRUCTURES: No masses. Contour normal. HEART AND VASCULAR STRUCTURES: Heart normal in size. Normal vasculature. BONES: No acute findings. HARDWARE: None in the chest. OTHER: No other significant finding. IMPRESSION: NO ACUTE RADIOGRAPHIC FINDING IN THE CHEST. TECHNICAL DOCUMENTATION: JOB ID: [id number] 2010 [employer]- All Rights Reserved Reading location - IP/workstation name: [email or web address]
--- NOTE | 2020-02-26 16:31 | RADIOLOGY REPORT (SQ) ---
EXAM DESCRIPTION: L SPINE WHOLE IMAGES COMPLETED DATE/TIME: 02/26/2020 4:20 pm REASON FOR STUDY: fall; back pain COMPARISON: 2015 NUMBER OF VIEWS: Five views including obliques. TECHNIQUE: AP, lateral, oblique, and sacral radiographic images acquired of the lumbar spine. LIMITATIONS: None. FINDINGS: MINERALIZATION: Normal. SEGMENTATION: Normal. No transitional anatomy. ALIGNMENT: Normal. VERTEBRAE: Maintained height. No fracture or worrisome bone lesion. DISCS: Disc space narrowing L5-S1. Multilevel osteophytes. POSTERIOR ELEMENTS: Pedicles and facets are intact. No pars defect or posterior arch defects. HARDWARE: None in the spine. PARASPINAL SOFT TISSUES: Normal. PELVIS: Intact as visualized. No fractures or worrisome bone lesions. SI joints intact. OTHER: No other significant finding. IMPRESSION: Mild degenerative changes. No acute fracture. TECHNICAL DOCUMENTATION: JOB ID: [id number] 2010 [employer]- All Rights Reserved Reading location - IP/workstation name: [email or web address]
[2020-02-26] MEDS ORDERED: CLINDAMYCIN 300 MG/D5W RTU 300 MG/50 ML RTUPB IV ONE (16:52)
[2020-02-26 17:37] LABS: APPEARANCE,URINE CLEAR; BILIRUBIN,URINE NEGATIVE (NEGATIVE); COLOR,URINE YELLOW; GLUCOSE, URINE NEGATIVE (NEGATIVE); KETONES,URINE NEGATIVE (NEGATIVE); LEUKOCYTE ESTERASE,URINE NEGATIVE (NEGATIVE); NITRITE,URINE NEGATIVE (NEGATIVE); PROTEIN,URINE NEGATIVE (NEGATIVE); URINE SPECIFIC GRAVITY 1.013; UROBILINOGEN,URINE NEGATIVE mg/dL (<2.0)
[2020-02-26] MEDS ORDERED: ACETAMINOPHEN 325 MG TABLET PO PRN (20:50)
--- NOTE | 2020-02-26 21:36 | EKG REPORT ---
SEVERITY:- ABNORMAL ECG - SINUS RHYTHM FIRST DEGREE AV BLOCK PROBABLE INFERIOR INFARCT, AGE INDETERMINATE : Confirmed by: Noel iVllalobos MD 26-Feb-2020 21:35:35
[2020-02-26 22:14] LABS: TROPONIN I < 0.012 ng/mL
[2020-02-27] MEDS ORDERED: CLINDAMYCIN PHOSPHATE INJ 300 MG/2 ML SDV ONE (01:34)
[2020-02-27] MEDS ORDERED: CLINDAMYCIN 300 MG/D5W RTU 300 MG/50 ML RTUPB IV ONE (01:34)
[2020-02-27] MEDS: CLINDAMYCIN 300 MG/D5W RTU 300 MG/50 ML RTUPB IV SCH ×3 (01:57→17:08)
[2020-02-27 04:53] LABS: ABSOLUTE EOSINOPHILS # (AUTO) 0.2 10^3/uL (0.0-0.6); ABSOLUTE LYMPHOCYTES (AUTO) 2.1 10^3/uL (0.5-4.7); ABSOLUTE MONOCYTES (AUTO) 0.8 10^3/uL (0.1-1.4); ABSOLUTE NEUT (AUTO) 5.6 10^3/uL (1.7-8.2); BASOPHILS % (AUTO) 0.3 % (0-2); EOSINOPHILS % (AUTO) 2.8 % (0-6); HEMATOCRIT 34.2 % (37.9-51.0); HEMOGLOBIN 11.8 g/dL (13.5-17.0); LYMPHOCYTES % (AUTO) 24.3 % (13-45); MEAN CORPUSCULAR HEMOGLOBIN 32.1 pg (27.0-33.4); MEAN CORPUSCULAR HGB CONC 34.6 g/dL (32.0-36.0); MEAN CORPUSCULAR VOLUME 93 fl (80-97); MONOCYTES % (AUTO) 8.7 % (3-13); PLATELET COUNT 166 10^3/uL (150-450); RED BLOOD COUNT 3.68 10^6/uL (4.35-5.55); RED CELL DISTRIBUTION WIDTH 13.9 % (11.5-14.0); SEGMENTED NEUTROPHILS % (AUTO) 63.9 % (42-78); TOTAL CELLS COUNTED % (AUTO) 100 %; WHITE BLOOD COUNT 8.8 10^3/uL (4.0-10.5)
[2020-02-27 05:10] LABS: ALBUMIN 3.2 g/dL (3.5-5.0); ALKALINE PHOSPHATASE 58 U/L (38-126); ANION GAP 7 (5-19); ASPARTATE AMINO TRANSFERASE 87 U/L (17-59); BILIRUBIN,TOTAL 0.3 mg/dL (0.2-1.3); BLOOD UREA NITROGEN 21 mg/dL (7-20); CALCIUM 8.7 mg/dL (8.4-10.2); CARBON DIOXIDE 24 mmol/L (22-30); CHLORIDE 107 mmol/L (98-107); GLUCOSE 143 mg/dL (75-110); POTASSIUM 3.9 mmol/L (3.6-5.0); TOTAL PROTEIN 5.9 g/dL (6.3-8.2)
[2020-02-27] MEDS: PANTOPRAZOLE SODIUM 40 MG TABLET.DR PO SCH (05:35)
[2020-02-27] MEDS: NORMAL SALINE 1000 ML 1,000 ML IV PRN ×2 (05:37→19:00)
[2020-02-27] MEDS: ENOXAPARIN SODIUM INJ 40 MG/0.4 ML DISP.SYRIN SUBCUT SCH (09:25)
--- NOTE | 2020-02-27 16:01 | PDOC H&P ---
History of Present Illness Admission Date/PCP: 02/26/20 17:33 GATOREID DAVIS Patient complains of: Fall at home History of Present Illness: HEATHER SINGH is a 59 year old male patient known to my practice who was seen in the office recently and fully ambulatory without any assistance but presented to the ED via EMS with claim that he the process of getting up to stand for an assisted chair he fell to the floor and was unable to get off the floor for several hours. He reported that he had episode of urinary incontinence while on the floor but eventually was able to get up, cleaned himself up and subsequently alerted EMS for transfer to the ED. He denied any seizure activity or history of seizure. He denied loss of consciousness. He denied any chest pain or palpitation. He reported chronic pain and expressed concern about his chronic gouty arthritis with joint pain. Patient reported left foot pain with swelling and redness around his big toe and heel region. He reported self medication with Neosporin topically to his left foot lesions. No fever or chills. No nausea, vomiting, or abdominal pain. He denied any voiding issues to suggest ongoing urinary tract infection. His morbidities are as listed below. His initial ED evaluation was significant for leukocytosis, hypotension, with concern for sepsis. He was advised hospitalization for further evaluation and management. Past Medical History Cardiac Medical History: Reports: Hypertension Denies: Coronary Artery Disease, Myocardial Infarction Pulmonary Medical History: Denies: Asthma, Bronchitis, Chronic Obstructive Pulmonary Disease (COPD), Pneumonia Neurological Medical History: Denies: Seizures Endocrine Medical History: Reports: Hypothyroidism, Other - Vitamin D deficiency Musculoskeltal Medical History: Reports: Arthritis, Gout Psychiatric Medical History: Reports: Bipolar Disorder, Depression Hematology: Denies: Anemia Social History Smoking Status: Never Smoker Frequency of Alcohol Use: None Hx Recreational Drug Use: No Hx Prescription Drug Abuse: No - Advance Directive Resuscitation Status: Full Code Family History Family History: Reviewed & Not Pertinent Parental Family History Reviewed: Yes Children Family History Reviewed: Yes Sibling(s) Family History Reviewed.: Yes Medication/Allergy Home Medications: Febuxostat [Uloric 40 mg Tablet] 40 mg PO DAILY 05/31/15 Aspirin [Adult Low Dose Aspirin EC] 81 mg PO DAILY 02/27/20 Benzonatate 200 mg PO TID 02/27/20 Colchicine [Mitigare] 0.6 mg PO BID 02/27/20 Diclofenac Sodium 1 gm TOP TID 02/27/20 Diclofenac Sodium [Diclofenac Sodium ER] 100 mg PO DAILY 02/27/20 Ergocalciferol (Vitamin D2) [Vitamin D2] 1,250 mcg PO MO@1000 02/27/20 Indomethacin 50 mg PO TIDP PRN 02/27/20 Levothyroxine Sodium [Synthroid 0.025 mg Tablet] 25 mcg PO DAILY 02/27/20 Lidocaine/Prilocaine [Emla Cream 5 gm (Clinic Use Only)] 1 gm TOP TID 02/27/20 Loratadine [Claritin 10 mg Tablet] 10 mg PO DAILY 02/27/20 Magnesium Oxide [Mag-Ox 400 mg Tablet] 400 mg PO DAILY 02/27/20 Oxycodone HCl 10 mg PO QID 02/27/20 Potassium Gluconate [Potassium] 600 mg PO DAILY 02/27/20 Pregabalin 150 mg PO TID 02/27/20 Telmisartan 20 mg PO DAILY 02/27/20 Tizanidine HCl 2 mg PO HSP PRN 02/27/20 Allergies/Adverse Reactions: No Known Allergies Allergy (Verified 11/22/18 09:54) Review of Systems Constitutional: ABSENT: chills, fever(s), headache(s), weight gain, weight loss Eyes: ABSENT: visual disturbances Ears: ABSENT: hearing changes Nose, Mouth, and Throat: ABSENT: headache(s), mouth pain, sore throat, vertigo Cardiovascular: ABSENT: chest pain, dyspnea on exertion, edema, orthropnea, palpitations Respiratory: ABSENT: cough, hemoptysis Gastrointestinal: ABSENT: abdominal pain, constipation, diarrhea, hematemesis, hematochezia, nausea, vomiting Genitourinary: ABSENT: dysuria, hematuria Musculoskeletal: PRESENT: deformity - 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 ABSENT: joint swelling Integumentary: ABSENT: rash, wounds Neurological: ABSENT: abnormal gait, abnormal speech, confusion, dizziness, focal weakness, syncope Psychiatric: ABSENT: anxiety, depression, homidical ideation, suicidal ideation Endocrine: ABSENT: cold intolerance, heat intolerance, polydipsia, polyuria Hematologic/Lymphatic: ABSENT: easy bleeding, easy bruising, lymphadenopathy Allergic/Immunologic: ABSENT: seasonal rhinorrhea Physical Exam Vital Signs: Temp Pulse Resp BP Pulse Ox 97.5 F 76 16 125/69 98 02/26/20 19:18 02/26/20 19:18 02/26/20 19:18 02/26/20 19:18 02/26/20 19:18 Intake & Output 02/25/20 02/26/20 02/27/20 06:59 06:59 06:59 Intake Total 1050 Balance 1050 Weight 111.13 kg General appearance: PRESENT: no acute distress, obese Head exam: PRESENT: atraumatic, normocephalic Eye exam: PRESENT: conjunctiva pink, EOMI, PERRLA. ABSENT: scleral icterus Ear exam: PRESENT: normal external ear exam Mouth exam: PRESENT: moist, tongue midline Neck exam: PRESENT: full ROM. ABSENT: carotid bruit, JVD, lymphadenopathy, thyromegaly Respiratory exam: PRESENT: clear to auscultation amanda Cardiovascular exam: PRESENT: RRR, +S1, +S2. ABSENT: diastolic murmur, rubs, systolic murmur Pulses: PRESENT: normal dorsalis pedis pul, +2 pedal pulses bilateral Vascular exam: PRESENT: normal capillary refill. ABSENT: pallor GI/Abdominal exam: PRESENT: normal bowel sounds, soft. ABSENT: distended, gu arding, mass, organolmegaly, rebound, tenderness Rectal exam: PRESENT: deferred Extremities exam: PRESENT: joint swelling - hallux toe and probably due to gout arthritis, tenderness - multiple joints Musculoskeletal exam: PRESENT: ambulatory, deformity - multiple joints due to gouty arthritis Neurological exam: PRESENT: alert, awake, oriented to person, oriented to place, oriented to time, oriented to situation, CN II-XII grossly intact. ABSENT: motor sensory deficit Psychiatric exam: PRESENT: appropriate affect, normal mood. ABSENT: homicidal ideation, suicidal ideation Skin exam: PRESENT: dry, intact, warm. ABSENT: cyanosis, rash Results Laboratory Results: 02/26/20 13:55 02/26/20 13:55 02/26/20 02/26/20 02/26/20 13:55 13:55 17:08 WBC 16.4 H RBC 4.06 L Hgb 12.6 L Hct 37.7 L MCV 93 MCH 31.1 MCHC 33.5 RDW 14.0 Plt Count 235 Seg Neutrophils % 80.3 H Sodium 136.0 L Potassium 4.5 Chloride 103 Carbon Dioxide 25 Anion Gap 8 BUN 27 H Creatinine 1.52 H Est GFR ( Amer) 57 L Glucose 122 H Calcium 9.1 Total Bilirubin 0.5 AST 90 H Alkaline Phosphatase 71 Total Protein 6.7 Albumin 3.9 Urine Color YELLOW Urine Appearance CLEAR Urine pH 5.0 Ur Specific [place] 1.013 Urine Protein NEGATIVE Urine Glucose (UA) NEGATIVE Urine Ketones NEGATIVE Urine Blood MODERATE H Urine Nitrite NEGATIVE Ur Leukocyte Esterase NEGATIVE Urine WBC (Auto) 2 Urine RBC (Auto) 1 02/26/20 13:55 NT-Pro-B Natriuret Pep 195 H Impressions: Lumbar Spine X-Ray 02/26/20 15:40 IMPRESSION: Mild degenerative changes. No acute fracture. Chest X-Ray 02/26/20 15:44 IMPRESSION: NO ACUTE RADIOGRAPHIC FINDING IN THE CHEST. Assessment & Plan - Diagnosis (1) Cellulitis of left foot Is this a current diagnosis for this admission?: Yes Plan: See admitting attending physician orders for details about care plan. (2) Sepsis due to undetermined organism Is this a current diagnosis for this admission?: Yes Plan: See admitting attending physician orders for details about care plan. (3) Rhabdomyolysis Qualifiers: Rhabdomyolysis type: non-traumatic Qualified Code(s): M62.82 - Rhabdomyolysis Is this a current diagnosis for this admission?: Yes Plan: See admitting attending physician orders for details about care plan. (4) HTN (hypertension) Qualifiers: Hypertension type: essential hypertension Qualified Code(s): I10 - Essential (primary) hypertension Is this a current diagnosis for this admission?: Yes Plan: See admitting attending physician orders for details about care plan. (5) Hypothyroidism Qualifiers: Hypothyroidism type: unspecified Qualified Code(s): E03.9 - Hypothyroidism, unspecified Is this a current diagnosis for this admission?: Yes Plan: See admitting attending physician orders for details about care plan. (6) Chronic gouty arthropathy with tophi Is this a current diagnosis for this admission?: Yes (7) Chronic use of opiate drug for therapeutic purpose Is this a current diagnosis for this admission?: Yes Plan: See admitting attending physician orders for details about care plan. (8) Vitamin D deficiency Is this a current diagnosis for this admission?: Yes Plan: See admitting attending physician orders for details about care plan. - Time Time Spent: 50 to 70 Minutes Medications reviewed and adjusted accordingly: Yes Anticipated discharge: Home with Homehealth Within: Other - Inpatient Certification Based on my medical assessment, after consideration of the patient's comorbidities, presenting symptoms, or acuity I expect that the services needed warrant INPATIENT care.: Yes I certify that my determination is in accordance with my understanding of Medicare's requirements for reasonable and necessary INPATIENT services [42 CFR 412.3e].: Yes Medical Necessity: Significant Comorbidiites Make Outpatient Treatment Too Risky, Need Close Monitoring Due to Risk of Patient Decompensation, Need For IV Fluids, Need For Continuous Telemetry Monitoring, Need for IV Antibiotics, Risk of Complication if Not Cared For in Hospital, Risk of Diagnosis Which Will R equire Inpatient Eval/Care/Monitoring Post Hospital Care: D/C Garage Manager Documentation - Plan Summary Plan Summary: See admitting attending physician orders for details about care plan.
--- NOTE | 2020-02-27 16:06 | PDOC PROGRESS REPORT ---
Subjective Progress Note for:: 02/27/20 Subjective:: Patient denied any chest pain or difficulty with breathing. Still expressed pain in his left foot. No reported fever or chills. No nausea, vomiting or abdominal pain. Reason For Visit: LEFT FOOT CELLULITIS,SEPSIS WITH HYPOTENSION,HTN Physical Exam Vital Signs: Temp Pulse Resp BP Pulse Ox 97.6 F 63 16 107/70 99 02/27/20 15:44 02/27/20 15:44 02/27/20 15:44 02/27/20 15:44 02/27/20 15:44 Intake & Output 02/26/20 02/27/20 02/28/20 06:59 06:59 06:59 Intake Total 1544 50 Balance 1544 50 Weight 112.3 kg General appearance: PRESENT: no acute distress, obese Head exam: PRESENT: atraumatic, normocephalic Eye exam: PRESENT: conjunctiva pink. ABSENT: scleral icterus Ear exam: PRESENT: normal external ear exam Mouth exam: PRESENT: moist Respiratory exam: PRESENT: clear to auscultation amanda Cardiovascular exam: PRESENT: RRR, +S1, +S2. ABSENT: diastolic murmur, rubs, systolic murmur Vascular exam: ABSENT: pallor GI/Abdominal exam: PRESENT: normal bowel sounds, soft. ABSENT: distended, guarding, mass, organolmegaly, rebound, tenderness Extremities exam: PRESENT: tenderness - left foot and hallux toe to palpation Musculoskeletal exam: PRESENT: ambulatory, deformity - related to his gouty arthritis with tophi, tenderness - left foot Neurological exam: PRESENT: alert, awake, oriented to person, oriented to place, oriented to time, oriented to situation, CN II-XII grossly intact. ABSENT: motor sensory deficit Psychiatric exam: PRESENT: appropriate affect, normal mood. ABSENT: homicidal ideation, suicidal ideation Skin exam: PRESENT: dry, erythema - to medial aspect and heel region of left foot, warm Results Laboratory Results: 02/27/20 04:30 02/27/20 04:30 02/26/20 02/26/20 02/26/20 13:55 17:08 21:15 WBC RBC Hgb Hct MCV MCH MCHC RDW Plt Count Seg Neutrophils % Sodium 136.0 L Potassium 4.5 Chloride 103 Carbon Dioxide 25 Anion Gap 8 BUN 27 H Creatinine 1.52 H Est GFR ( Amer) 57 L Glucose 122 H Lactic Acid 1.6 Calcium 9.1 Total Bilirubin 0.5 AST 90 H Alkaline Phosphatase 71 Total Protein 6.7 Albumin 3.9 Urine Color YELLOW Urine Appearance CLEAR Urine pH 5.0 Ur Specific [place] 1.013 Urine Protein NEGATIVE Urine Glucose (UA) NEGATIVE Urine Ketones NEGATIVE Urine Blood MODERATE H Urine Nitrite NEGATIVE Ur Leukocyte Esterase NEGATIVE Urine WBC (Auto) 2 Urine RBC (Auto) 1 02/27/20 02/27/20 04:30 04:30 WBC 8.8 RBC 3.68 L Hgb 11.8 L Hct 34.2 L MCV 93 MCH 32.1 MCHC 34.6 RDW 13.9 Plt Count 166 Seg Neutrophils % 63.9 Sodium 137.6 Potassium 3.9 Chloride 107 Carbon Dioxide 24 Anion Gap 7 BUN 21 H Creatinine 1.01 Est GFR ( Amer) > 60 Glucose 143 H Lactic Acid Calcium 8.7 Total Bilirubin 0.3 AST 87 H Alkaline Phosphatase 58 Total Protein 5.9 L Albumin 3.2 L Urine Color Urine Appearance Urine pH Ur Specific [place] Urine Protein Urine Glucose (UA) Urine Ketones Urine Blood Urine Nitrite Ur Leukocyte Esterase Urine WBC (Auto) Urine RBC (Auto) 02/26/20 02/26/20 02/26/20 13:55 21:15 21:15 Creatine Kinase Cancelled CK-MB (CK-2) 35.30 H Troponin I < 0.012 NT-Pro-B Natriuret Pep 195 H 02/26/20 23:22 Creatine Kinase 3139 H CK-MB (CK-2) Troponin I NT-Pro-B Natriuret Pep Impressions: Lumbar Spine X-Ray 02/26/20 15:40 IMPRESSION: Mild degenerative changes. No acute fracture. Chest X-Ray 02/26/20 15:44 IMPRESSION: NO ACUTE RADIOGRAPHIC FINDING IN THE CHEST. Assessment & Plan - Diagnosis (1) Cellulitis of left foot Is this a current diagnosis for this admission?: Yes (2) Sepsis due to undetermined organism Is this a current diagnosis for this admission?: Yes (3) Rhabdomyolysis Qualifiers: Rhabdomyolysis type: non-traumatic Qualified Code(s): M62.82 - Rhabdomyolysis Is this a current diagnosis for this admission?: Yes (4) HTN (hypertension) Qualifiers: Hypertension type: essential hypertension Qualified Code(s): I10 - Essential (primary) hypertension Is this a current diagnosis for this admission?: Yes (5) Hypothyroidism Qualifiers: Hypothyroidism type: unspecified Qualified Code(s): E03.9 - Hypothyroidism, unspecified Is this a current diagnosis for this admission?: Yes (6) Chronic gouty arthropathy with tophi Is this a current diagnosis for this admission?: Yes (7) Chronic use of opiate drug for therapeutic purpose Is this a current diagnosis for this admission?: Yes (8) Vitamin D deficiency Is this a current diagnosis for this admission?: Yes - Time Time Spent with patient: 25-34 minutes Level of Care: IMCU Medications reviewed and adjusted accordingly: Yes Anticipated discharge: Home with Homehealth Within: Other - Inpatient Certification Based on my medical assessment, after consideration of the patient's comorbidities, presenting symptoms, or acuity I expect that the services needed warrant INPATIENT care.: Yes I certify that my determination is in accordance with my understanding of Medicare's requirements for reasonable and necessary INPATIENT services [42 CFR 412.3e].: Yes Medical Necessity: Significant Comorbidiites Make Outpatient Treatment Too Risky, Need Close Monitoring Due to Risk of Patient Decompensation, Need For IV Fluids, Need For Continuous Telemetry Monitoring, Need for IV Antibiotics, Risk of Complication if Not Cared For in Hospital, Risk of Diagnosis Which Will Require Inpatient Eval/Care/Monitoring Post Hospital Care: D/C Chief Architect Documentation - Plan Summary Plan Summary: Continue IV Clindamycin coverage. I reviewed and maintain on pre admission medication ads needed. Obtain CBC wit diff, CMP in AM.
[2020-02-27] MEDS: COLCHICINE 0.6 MG TABLET PO SCH (17:08)
[2020-02-27] MEDS: OXYCODONE HCL IR 5 MG TABLET PO SCH ×2 (17:08→23:04)
[2020-02-27] MEDS ORDERED: COLCHICINE 0.6 MG PO SCH (18:00)
[2020-02-27] MEDS ORDERED: (PENDING PHARMACY ID) (Pregabalin [Pregabalin] 150 MG) PO SCH (18:00)
[2020-02-27] MEDS: PREGABALIN 75 MG CAPSULE PO SCH (21:39)
[2020-02-28] MEDS: CLINDAMYCIN 300 MG/D5W RTU 300 MG/50 ML RTUPB IV SCH ×3 (02:52→18:01)
[2020-02-28] MEDS: PANTOPRAZOLE SODIUM 40 MG TABLET.DR PO SCH (05:06)
[2020-02-28] MEDS: PREGABALIN 75 MG CAPSULE PO SCH ×3 (05:06→22:18)
[2020-02-28] MEDS: LEVOTHYROXINE SODIUM 0.025 MG TABLET PO SCH (05:06)
[2020-02-28] MEDS: OXYCODONE HCL IR 5 MG TABLET PO SCH ×2 (05:06→12:01)
[2020-02-28] MEDS: NORMAL SALINE 1000 ML 1,000 ML IV PRN ×2 (05:08→16:15)
[2020-02-28 06:23] LABS: ABSOLUTE EOSINOPHILS # (AUTO) 0.2 10^3/uL (0.0-0.6); ABSOLUTE LYMPHOCYTES (AUTO) 2.2 10^3/uL (0.5-4.7); ABSOLUTE MONOCYTES (AUTO) 0.7 10^3/uL (0.1-1.4); ABSOLUTE NEUT (AUTO) 3.1 10^3/uL (1.7-8.2); BASOPHILS % (AUTO) 0.4 % (0-2); EOSINOPHILS % (AUTO) 3.9 % (0-6); HEMATOCRIT 30.7 % (37.9-51.0); HEMOGLOBIN 10.9 g/dL (13.5-17.0); MEAN CORPUSCULAR HEMOGLOBIN 32.3 pg (27.0-33.4); MEAN CORPUSCULAR HGB CONC 35.6 g/dL (32.0-36.0); MEAN CORPUSCULAR VOLUME 91 fl (80-97); MONOCYTES % (AUTO) 10.5 % (3-13); PLATELET COUNT 184 10^3/uL (150-450); RED BLOOD COUNT 3.38 10^6/uL (4.35-5.55); RED CELL DISTRIBUTION WIDTH 13.6 % (11.5-14.0); SEGMENTED NEUTROPHILS % (AUTO) 50.2 % (42-78); TOTAL CELLS COUNTED % (AUTO) 100 %; WHITE BLOOD COUNT 6.3 10^3/uL (4.0-10.5)
[2020-02-28 06:44] LABS: ALKALINE PHOSPHATASE 56 U/L (38-126); ASPARTATE AMINO TRANSFERASE 67 U/L (17-59); BILIRUBIN,TOTAL 0.3 mg/dL (0.2-1.3); BLOOD UREA NITROGEN 13 mg/dL (7-20); CALCIUM 8.7 mg/dL (8.4-10.2); CARBON DIOXIDE 25 mmol/L (22-30); CHLORIDE 111 mmol/L (98-107); CREATINE KINASE 1282 U/L (55-170); GLUCOSE 94 mg/dL (75-110); POTASSIUM 4.1 mmol/L (3.6-5.0); TOTAL PROTEIN 5.4 g/dL (6.3-8.2)
[2020-02-28 06:54] LABS: ANION GAP 4 (5-19); CREATINE KINASE MB 5.64 ng/mL (<4.55)
[2020-02-28 06:55] LABS: TROPONIN I < 0.012 ng/mL
[2020-02-28] MEDS: ASPIRIN 81 MG TABLET, ENT COATED PO SCH (09:15)
[2020-02-28] MEDS: MAGNESIUM OXIDE 400 MG TABLET PO SCH (09:15)
[2020-02-28] MEDS: COLCHICINE 0.6 MG TABLET PO SCH (09:15)
[2020-02-28] MEDS: FEBUXOSTAT 40 MG TABLET PO SCH (09:15)
[2020-02-28] MEDS: LOSARTAN POTASSIUM 25 MG TABLET PO SCH (09:15)
[2020-02-28] MEDS: LORATADINE 10 MG TABLET PO SCH (09:15)
[2020-02-28] MEDS: ENOXAPARIN SODIUM INJ 40 MG/0.4 ML DISP.SYRIN SUBCUT SCH (09:16)
[2020-02-28] MEDS ORDERED: (PENDING PHARMACY ID) (Telmisartan [Telmisartan] 20 MG) PO SCH (10:00)
[2020-02-28] MEDS ORDERED: ERGOCALCIFEROL (VITAMIN D2) 50000 UNIT (1.25 MG) CAPSULE PO SCH (10:00)
--- NOTE | 2020-02-28 12:09 | PDOC PROGRESS REPORT ---
Subjective Progress Note for:: 02/28/20 Subjective:: Patient denied any chest pain or difficulty with breathing. No reported fever or chills. No nausea, vomiting or abdominal pain. His pain is fairly controlled on his current regimen. Reason For Visit: LEFT FOOT CELLULITIS,SEPSIS WITH HYPOTENSION,HTN Physical Exam Vital Signs: Temp Pulse Resp BP Pulse Ox 98.3 F 57 L 18 122/83 96 02/28/20 08:15 02/28/20 08:15 02/28/20 08:15 02/28/20 08:15 02/28/20 08:15 Intake & Output 02/27/20 02/28/20 02/29/20 06:59 06:59 06:59 Intake Total 1544 3212 50 Output Total 1025 Balance 1544 2187 50 Weight 112.3 kg 112.7 kg Physical Exam: General appearance: PRESENT: no acute distress, obese Head exam: PRESENT: atraumatic, normocephalic Eye exam: PRESENT: conjunctiva pink. ABSENT: pallor, scleral icterus Respiratory exam: PRESENT: clear to auscultation amanda Cardiovascular exam: PRESENT: RRR, +S1, +S2. ABSENT: diastolic murmur, rubs, systolic murmur GI/Abdominal exam: PRESENT: normal bowel sounds, soft. ABSENT: distended, guarding, mass, organomegaly, rebound, tenderness Extremities exam: PRESENT: tenderness - left foot and hallux toe to palpation Musculoskeletal exam: PRESENT: ambulatory, deformity - related to his gouty arthritis with tophi, tenderness - left foot Neurological exam: PRESENT: alert, awake, oriented to person, oriented to place, oriented to time, oriented to situation, CN II-XII grossly intact. ABSENT: motor sensory deficit Psychiatric exam: PRESENT: appropriate affect, normal mood. ABSENT: homicidal ideation, suicidal ideation Skin exam: PRESENT: dry, erythema - to medial aspect and heel region of left foot, warm Results Laboratory Results: 02/28/20 04:57 02/28/20 04:57 02/27/20 02/28/20 02/28/20 04:30 04:57 04:57 WBC 6.3 RBC 3.38 L Hgb 10.9 L Hct 30.7 L MCV 91 MCH 32.3 MCHC 35.6 RDW 13.6 Plt Count 184 Seg Neutrophils % 50.2 Sodium 139.5 Potassium 4.1 Chloride 111 H Carbon Dioxide 25 Anion Gap 4 L BUN 13 Creatinine 0.86 Est GFR ( Amer) > 60 Glucose 94 Uric Acid 3.1 L Calcium 8.7 Total Bilirubin 0.3 AST 67 H Alkaline Phosphatase 56 Total Protein 5.4 L Albumin 3.0 L 02/26/20 02/26/20 02/26/20 13:55 21:15 21:15 Creatine Kinase Cancelled CK-MB (CK-2) 35.30 H Troponin I < 0.012 NT-Pro-B Natriuret Pep 195 H 02/26/20 02/28/20 02/28/20 23:22 04:57 04:57 Creatine Kinase 3139 H 1282 H CK-MB (CK-2) 5.64 H Troponin I < 0.012 NT-Pro-B Natriuret Pep Impressions: Lumbar Spine X-Ray 02/26/20 15:40 IMPRESSION: Mild degenerative changes. No acute fracture. Chest X-Ray 02/26/20 15:44 IMPRESSION: NO ACUTE RADIOGRAPHIC FINDING IN THE CHEST. Assessment & Plan - Diagnosis (1) Cellulitis of left foot Is this a current diagnosis for this admission?: Yes (2) Sepsis due to undetermined organism Is this a current diagnosis for this admission?: Yes (3) Rhabdomyolysis Qualifiers: Rhabdomyolysis type: non-traumatic Qualified Code(s): M62.82 - Rhabdomyolysis Is this a current diagnosis for this admission?: Yes (4) HTN (hypertension) Qualifiers: Hypertension type: essential hypertension Qualified Code(s): I10 - Essential (primary) hypertension Is this a current diagnosis for this admission?: Yes (5) Hypothyroidism Qualifiers: Hypothyroidism type: unspecified Qualified Code(s): E03.9 - Hypothyroidism, unspecified Is this a current diagnosis for this admission?: Yes (6) Chronic gouty arthropathy with tophi Is this a current diagnosis for this admission?: Yes (7) Chronic use of opiate drug for therapeutic purpose Is this a current diagnosis for this admission?: Yes (8) Vitamin D deficiency Is this a current diagnosis for this admission?: Yes - Time Time Spent with patient: 25-34 minutes Level of Care: IMCU Medications reviewed and adjusted accordingly: Yes Anticipated discharge: Home Within: Other - Inpatient Certification Based on my medical assessment, after consideration of the patient's comorbidities, presenting symptoms, or acuity I expect that the services needed warrant INPATIENT care.: Yes I certify that my determination is in accordance with my understanding of Medicare's requirements for reasonable and necessary INPATIENT services [42 CFR 412.3e].: Yes Medical Necessity: Significant Comorbidiites Make Outpatient Treatment Too Risky, Need Close Monitoring Due to Risk of Patient Decompensation, Need For IV Fluids, Need for IV Antibiotics, Risk of Complication if Not Cared For in Hospital, Risk of Diagnosis Which Will Require Inpatient Eval/Care/Monitoring Post Hospital Care: D/C Icu Rn 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 Follow up on blood culture findings.
[2020-02-28] MEDS: OXYCODONE HCL IR 5 MG TABLET PO PRN (18:01)
[2020-02-29] MEDS: OXYCODONE HCL IR 5 MG TABLET PO PRN ×4 (00:01→18:47)
[2020-02-29] MEDS: CLINDAMYCIN 300 MG/D5W RTU 300 MG/50 ML RTUPB IV SCH ×3 (02:05→18:47)
[2020-02-29] MEDS: NORMAL SALINE 1000 ML 1,000 ML IV PRN ×2 (04:00→18:48)
[2020-02-29] MEDS: PREGABALIN 75 MG CAPSULE PO SCH ×3 (06:00→21:39)
[2020-02-29] MEDS: PANTOPRAZOLE SODIUM 40 MG TABLET.DR PO SCH (06:18)
[2020-02-29] MEDS: LEVOTHYROXINE SODIUM 0.025 MG TABLET PO SCH (06:18)
[2020-02-29] MEDS: LORATADINE 10 MG TABLET PO SCH (09:31)
[2020-02-29] MEDS: LOSARTAN POTASSIUM 25 MG TABLET PO SCH (09:31)
[2020-02-29] MEDS: ASPIRIN 81 MG TABLET, ENT COATED PO SCH (09:31)
[2020-02-29] MEDS: MAGNESIUM OXIDE 400 MG TABLET PO SCH (09:31)
[2020-02-29] MEDS: ENOXAPARIN SODIUM INJ 40 MG/0.4 ML DISP.SYRIN SUBCUT SCH (09:32)
[2020-02-29] MEDS: FEBUXOSTAT 40 MG TABLET PO SCH (09:32)
--- NOTE | 2020-02-29 19:02 | PDOC PROGRESS REPORT ---
Subjective Progress Note for:: 02/29/20 Subjective:: Patient denied any chest pain or difficulty with breathing. No reported fever or chills. No nausea, vomiting or abdominal pain. His pain is adequately controlled on current medication management. Reason For Visit: LEFT FOOT CELLULITIS,SEPSIS WITH HYPOTENSION,HTN Physical Exam Vital Signs: Temp Pulse Resp BP Pulse Ox 97.4 F 57 L 20 131/83 H 97 02/29/20 15:35 02/29/20 15:35 02/29/20 15:35 02/29/20 15:35 02/29/20 15:35 Intake & Output 02/28/20 02/29/20 03/01/20 06:59 06:59 06:59 Intake Total 3212 3754 2360 Output Total 1025 1100 1425 Balance 2187 2654 935 Weight 112.7 kg 114 kg Physical Exam: General appearance: PRESENT: no acute distress, obese Head exam: PRESENT: atraumatic, normocephalic Eye exam: PRESENT: conjunctiva pink. ABSENT: pallor, scleral icterus Respiratory exam: PRESENT: clear to auscultation amanda Cardiovascular exam: PRESENT: RRR, +S1, +S2. ABSENT: diastolic murmur, rubs, systolic murmur GI/Abdominal exam: PRESENT: normal bowel sounds, soft. ABSENT: distended, guarding, mass, organomegaly, rebound, tenderness Extremities exam: PRESENT: tenderness - left foot and hallux toe to palpation Musculoskeletal exam: PRESENT: ambulatory, deformity - related to his gouty arthritis with tophi, tenderness - left foot Neurological exam: PRESENT: alert, awake, oriented to person, oriented to place, oriented to time, oriented to situation, CN II-XII grossly intact. ABSENT: motor sensory deficit Psychiatric exam: PRESENT: appropriate affect, normal mood. ABSENT: homicidal ideation, suicidal ideation Skin exam: PRESENT: dry, erythema - to medial aspect and heel region of left fo ot, warm Results Laboratory Results: 02/28/20 04:57 02/28/20 04:57 02/26/20 02/26/20 02/26/20 13:55 21:15 21:15 Creatine Kinase Cancelled CK-MB (CK-2) 35.30 H Troponin I < 0.012 NT-Pro-B Natriuret Pep 195 H 02/26/20 02/28/20 02/28/20 23:22 04:57 04:57 Creatine Kinase 3139 H 1282 H CK-MB (CK-2) 5.64 H Troponin I < 0.012 NT-Pro-B Natriuret Pep Impressions: Lumbar Spine X-Ray 02/26/20 15:40 IMPRESSION: Mild degenerative changes. No acute fracture. Chest X-Ray 02/26/20 15:44 IMPRESSION: NO ACUTE RADIOGRAPHIC FINDING IN THE CHEST. Assessment & Plan - Diagnosis (1) Cellulitis of left foot Is this a current diagnosis for this admission?: Yes (2) Sepsis due to undetermined organism Is this a current diagnosis for this admission?: Yes (3) Rhabdomyolysis Qualifiers: Rhabdomyolysis type: non-traumatic Qualified Code(s): M62.82 - Rhabdomyolysis Is this a current diagnosis for this admission?: Yes (4) HTN (hypertension) Qualifiers: Hypertension type: essential hypertension Qualified Code(s): I10 - Essential (primary) hypertension Is this a current diagnosis for this admission?: Yes (5) Hypothyroidism Qualifiers: Hypothyroidism type: unspecified Qualified Code(s): E03.9 - Hypothyroidism, unspecified Is this a current diagnosis for this admission?: Yes (6) Chronic gouty arthropathy with tophi Is this a current diagnosis for this admission?: Yes (7) Chronic use of opiate drug for therapeutic purpose Is this a current diagnosis for this admission?: Yes (8) Vitamin D deficiency Is this a current diagnosis for this admission?: Yes - Time Time Spent with patient: 25-34 minutes Level of Care: IMCU Medications reviewed and adjusted accordingly: Yes Anticipated discharge: Home Within: Other - Inpatient Certification Based on my medical assessment, after consideration of the patient's comorbidities, presenting symptoms, or acuity I expect that the services needed warrant INPATIENT care.: Yes I certify that my determination is in accordance with my understanding of Medicare's requirements for reasonable and necessary INPATIENT services [42 CFR 412.3e].: Yes Medical Necessity: Significant Comorbidiites Make Outpatient Treatment Too Risky, Need Close Monitoring Due to Risk of Patient Decompensation, Need For IV Fluids, Need For Continuous Telemetry Monitoring, Need for IV Antibiotics, Risk of Complication if Not Cared For in Hospital, Risk of Diagnosis Which Will Require Inpatient Eval/Care/Monitoring Post Hospital Care: D/C Supervisor [employer] 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 Obtain BMP, CBC with diff, CK, CKMB, and Troponin I level in AM.
[2020-03-01] MEDS: OXYCODONE HCL IR 5 MG TABLET PO PRN ×4 (02:11→20:17)
[2020-03-01] MEDS: CLINDAMYCIN 300 MG/D5W RTU 300 MG/50 ML RTUPB IV SCH ×3 (02:12→17:12)
[2020-03-01 05:20] LABS: ABSOLUTE BASOPHILS # (AUTO) 0.1 10^3/uL (0.0-0.2); ABSOLUTE EOSINOPHILS # (AUTO) 0.3 10^3/uL (0.0-0.6); ABSOLUTE LYMPHOCYTES (AUTO) 2.5 10^3/uL (0.5-4.7); ABSOLUTE MONOCYTES (AUTO) 0.6 10^3/uL (0.1-1.4); ABSOLUTE NEUT (AUTO) 2.6 10^3/uL (1.7-8.2); BASOPHILS % (AUTO) 1.2 % (0-2); EOSINOPHILS % (AUTO) 4.5 % (0-6); HEMATOCRIT 32.2 % (37.9-51.0); HEMOGLOBIN 11.3 g/dL (13.5-17.0); LYMPHOCYTES % (AUTO) 41.5 % (13-45); MEAN CORPUSCULAR HEMOGLOBIN 31.9 pg (27.0-33.4); MEAN CORPUSCULAR HGB CONC 35.1 g/dL (32.0-36.0); MEAN CORPUSCULAR VOLUME 91 fl (80-97); MONOCYTES % (AUTO) 10.2 % (3-13); PLATELET COUNT 210 10^3/uL (150-450); RED BLOOD COUNT 3.55 10^6/uL (4.35-5.55); RED CELL DISTRIBUTION WIDTH 13.3 % (11.5-14.0); SEGMENTED NEUTROPHILS % (AUTO) 42.6 % (42-78); TOTAL CELLS COUNTED % (AUTO) 100 %
[2020-03-01 05:46] LABS: BLOOD UREA NITROGEN 13 mg/dL (7-20); CALCIUM 8.9 mg/dL (8.4-10.2); CARBON DIOXIDE 26 mmol/L (22-30); CHLORIDE 110 mmol/L (98-107); CREATINE KINASE 322 U/L (55-170); GLUCOSE 91 mg/dL (75-110); POTASSIUM 3.9 mmol/L (3.6-5.0)
[2020-03-01] MEDS: LEVOTHYROXINE SODIUM 0.025 MG TABLET PO SCH (05:48)
[2020-03-01] MEDS: PREGABALIN 75 MG CAPSULE PO SCH ×3 (05:48→21:09)
[2020-03-01] MEDS: PANTOPRAZOLE SODIUM 40 MG TABLET.DR PO SCH (05:49)
[2020-03-01 05:50] LABS: TROPONIN I < 0.012 ng/mL
[2020-03-01 05:58] LABS: ANION GAP 4 (5-19)
[2020-03-01] MEDS: NORMAL SALINE 1000 ML 1,000 ML IV PRN (06:03)
[2020-03-01] MEDS: MAGNESIUM OXIDE 400 MG TABLET PO SCH (09:56)
[2020-03-01] MEDS: LORATADINE 10 MG TABLET PO SCH (09:56)
[2020-03-01] MEDS: ASPIRIN 81 MG TABLET, ENT COATED PO SCH (09:56)
[2020-03-01] MEDS: LOSARTAN POTASSIUM 25 MG TABLET PO SCH (09:56)
[2020-03-01] MEDS: ENOXAPARIN SODIUM INJ 40 MG/0.4 ML DISP.SYRIN SUBCUT SCH (09:57)
[2020-03-01] MEDS: FEBUXOSTAT 40 MG TABLET PO SCH (09:58)
[2020-03-01] MEDS: POLYETHYLENE GLYCOL 3350 POWDER 17 GM/1 PACKET PO SCH (14:07)
--- NOTE | 2020-03-01 17:29 | PDOC PROGRESS REPORT ---
Subjective Progress Note for:: 03/01/20 Subjective:: Patient denied any chest pain or difficulty with breathing. No reported fever or chills. No nausea, vomiting or abdominal pain. Reason For Visit: LEFT FOOT CELLULITIS,SEPSIS WITH HYPOTENSION,HTN Physical Exam Vital Signs: Temp Pulse Resp BP Pulse Ox 97.3 F 62 16 148/88 H 99 03/01/20 12:12 03/01/20 14:00 03/01/20 12:12 03/01/20 12:12 03/01/20 12:12 Intake & Output 02/29/20 03/01/20 03/02/20 06:59 06:59 06:59 Intake Total 3754 4090 475 Output Total 1100 3375 700 Balance 2654 715 -225 Weight 114 kg 114.4 kg Physical Exam: General appearance: PRESENT: no acute distress, obese Head exam: PRESENT: atraumatic, normocephalic Eye exam: PRESENT: conjunctiva pink. ABSENT: pallor, scleral icterus Respiratory exam: PRESENT: clear to auscultation amanda Cardiovascular exam: PRESENT: RRR, +S1, +S2. ABSENT: diastolic murmur, rubs, systolic murmur GI/Abdominal exam: PRESENT: normal bowel sounds, soft. ABSENT: distended, guarding, mass, organomegaly, rebound, tenderness Extremities exam: PRESENT: tenderness - left foot and hallux toe to palpation Musculoskeletal exam: PRESENT: ambulatory, deformity - related to his gouty arthritis with tophi, tenderness - left foot Neurological exam: PRESENT: alert, awake, oriented to person, oriented to place, oriented to time, oriented to situation, CN II-XII grossly intact. ABSENT: motor sensory deficit Psychiatric exam: PRESENT: appropriate affect, normal mood. ABSENT: homicidal ideation, suicidal ideation Skin exam: PRESENT: dry, erythema - to medial aspect and heel region of left foot, warm Results Laboratory Results: 03/01/20 04:33 03/01/20 04:33 03/01/20 03/01/20 04:33 04:33 WBC 6.0 RBC 3.55 L Hgb 11.3 L Hct 32.2 L MCV 91 MCH 31.9 MCHC 35.1 RDW 13.3 Plt Count 210 Seg Neutrophils % 42.6 Sodium 140.0 Potassium 3.9 Chloride 110 H Carbon Dioxide 26 Anion Gap 4 L BUN 13 Creatinine 0.88 Est GFR ( Amer) > 60 Glucose 91 Calcium 8.9 02/26/20 02/26/20 02/26/20 13:55 21:15 21:15 Creatine Kinase Cancelled CK-MB (CK-2) 35.30 H Troponin I < 0.012 NT-Pro-B Natriuret Pep 195 H 02/26/20 02/28/20 02/28/20 23:22 04:57 04:57 Creatine Kinase 3139 H 1282 H CK-MB (CK-2) 5.64 H Troponin I < 0.012 NT-Pro-B Natriuret Pep 03/01/20 03/01/20 04:33 04:33 Creatine Kinase 322 H CK-MB (CK-2) 1.10 Troponin I < 0.012 NT-Pro-B Natriuret Pep Impressions: Lumbar Spine X-Ray 02/26/20 15:40 IMPRESSION: Mild degenerative changes. No acute fracture. Chest X-Ray 02/26/20 15:44 IMPRESSION: NO ACUTE RADIOGRAPHIC FINDING IN THE CHEST. Assessment & Plan - Diagnosis (1) Cellulitis of left foot Is this a current diagnosis for this admission?: Yes (2) Sepsis due to undetermined organism Is this a current diagnosis for this admission?: Yes (3) Rhabdomyolysis Qualifiers: Rhabdomyolysis type: non-traumatic Qualified Code(s): M62.82 - Rhabdomyolysis Is this a current diagnosis for this admission?: Yes (4) HTN (hypertension) Qualifiers: Hypertension type: essential hypertension Qualified Code(s): I10 - Essential (primary) hypertension Is this a current diagnosis for this admission?: Yes (5) Hypothyroidism Qualifiers: Hypothyroidism type: unspecified Qualified Code(s): E03.9 - Hypothyroidism, unspecified Is this a current diagnosis for this admission?: Yes (6) Chronic gouty arthropathy with tophi Is this a current diagnosis for this admission?: Yes (7) Chronic use of opiate drug for therapeutic purpose Is this a current diagnosis for this admission?: Yes (8) Vitamin D deficiency Is this a current diagnosis for this admission?: Yes - Time Time Spent with patient: 25-34 minutes Level of Care: IMCU Anticipated discharge: Home Within: Other - Inpatient Certification Based on my medical assessment, after consideration of the patient's comorbidities, presenting symptoms, or acuity I expect that the services needed warrant INPATIENT care.: Yes I certify that my determination is in accordance with my understanding of Medicare's requirements for reasonable and necessary INPATIENT services [42 CFR 412.3e].: Yes Medical Necessity: Significant Comorbidiites Make Outpatient Treatment Too Risky, Need Close Monitoring Due to Risk of Patient Decompensation, Need For IV Fluids, Need For Continuous Telemetry Monitoring, Need for IV Antibiotics, Risk of Complication if Not Cared For in Hospital, Risk of Diagnosis Which Will Require Inpatient Eval/Care/Monitoring 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 Follow up on blood culture.
[2020-03-02] MEDS: OXYCODONE HCL IR 5 MG TABLET PO PRN ×4 (02:24→21:06)
[2020-03-02] MEDS: CLINDAMYCIN 300 MG/D5W RTU 300 MG/50 ML RTUPB IV SCH ×2 (02:25→09:21)
[2020-03-02] MEDS: LEVOTHYROXINE SODIUM 0.025 MG TABLET PO SCH (05:27)
[2020-03-02] MEDS: PREGABALIN 75 MG CAPSULE PO SCH ×3 (05:27→21:06)
[2020-03-02] MEDS: PANTOPRAZOLE SODIUM 40 MG TABLET.DR PO SCH (05:27)
[2020-03-02] MEDS: NORMAL SALINE 1000 ML 1,000 ML IV PRN ×2 (05:27→17:43)
[2020-03-02] MEDS: ASPIRIN 81 MG TABLET, ENT COATED PO SCH (09:20)
[2020-03-02] MEDS: POLYETHYLENE GLYCOL 3350 POWDER 17 GM/1 PACKET PO SCH (09:20)
[2020-03-02] MEDS: LOSARTAN POTASSIUM 25 MG TABLET PO SCH (09:20)
[2020-03-02] MEDS: LORATADINE 10 MG TABLET PO SCH (09:20)
[2020-03-02] MEDS: MAGNESIUM OXIDE 400 MG TABLET PO SCH (09:20)
[2020-03-02] MEDS: FEBUXOSTAT 40 MG TABLET PO SCH (09:20)
[2020-03-02] MEDS: ENOXAPARIN SODIUM INJ 40 MG/0.4 ML DISP.SYRIN SUBCUT SCH (09:22)
--- NOTE | 2020-03-02 18:31 | PDOC PROGRESS REPORT ---
Subjective Progress Note for:: 03/02/20 Subjective:: Patient denied any chest pain or difficulty with breathing. No nausea, vomiting or abdominal pain. No reported fever or chills. Reason For Visit: LEFT FOOT CELLULITIS,SEPSIS WITH HYPOTENSION,HTN Physical Exam Vital Signs: Temp Pulse Resp BP Pulse Ox 97.9 F 89 16 113/65 94 03/02/20 11:04 03/02/20 14:00 03/02/20 11:04 03/02/20 11:04 03/02/20 11:04 Intake & Output 03/01/20 03/02/20 03/03/20 06:59 06:59 06:59 Intake Total 4090 2435 2004 Output Total 3375 2500 1500 Balance 715 -65 505 Weight 114.4 kg 117.7 kg Physical Exam: General appearance: PRESENT: no acute distress, obese Head exam: PRESENT: atraumatic, normocephalic Eye exam: PRESENT: conjunctiva pink. ABSENT: pallor, scleral icterus Respiratory exam: PRESENT: clear to auscultation amanda Cardiovascular exam: PRESENT: RRR, +S1, +S2. ABSENT: diastolic murmur, rubs, systolic murmur GI/Abdominal exam: PRESENT: normal bowel sounds, soft. ABSENT: distended, guarding, mass, organomegaly, rebound, tenderness Extremities exam: PRESENT: tenderness - left foot and hallux toe to palpation Musculoskeletal exam: PRESENT: ambulatory, deformity - related to his gouty arthritis with tophi, tenderness - left foot Neurological exam: PRESENT: alert, awake, oriented to person, oriented to place, oriented to time, oriented to situation, CN II-XII grossly intact. ABSENT: motor sensory deficit Psychiatric exam: PRESENT: appropriate affect, normal mood. ABSENT: homicidal ideation, suicidal ideation Skin exam: PRESENT: dry, erythema - to medial aspect and heel region of left foot, warm Results Laboratory Results: 03/01/20 04:33 03/01/20 04:33 02/26/20 02/26/20 02/26/20 13:55 21:15 21:15 Creatine Kinase Cancelled CK-MB (CK-2) 35.30 H Troponin I < 0.012 NT-Pro-B Natriuret Pep 195 H 02/26/20 02/28/20 02/28/20 23:22 04:57 04:57 Creatine Kinase 3139 H 1282 H CK-MB (CK-2) 5.64 H Troponin I < 0.012 NT-Pro-B Natriuret Pep 03/01/20 03/01/20 04:33 04:33 Creatine Kinase 322 H CK-MB (CK-2) 1.10 Troponin I < 0.012 NT-Pro-B Natriuret Pep Impressions: Lumbar Spine X-Ray 02/26/20 15:40 IMPRESSION: Mild degenerative changes. No acute fracture. Chest X-Ray 02/26/20 15:44 IMPRESSION: NO ACUTE RADIOGRAPHIC FINDING IN THE CHEST. Assessment & Plan - Diagnosis (1) Cellulitis of left foot Is this a current diagnosis for this admission?: Yes (2) Sepsis due to undetermined organism Is this a current diagnosis for this admission?: Yes (3) Rhabdomyolysis Qualifiers: Rhabdomyolysis type: non-traumatic Qualified Code(s): M62.82 - Rhabdomyolysis Is this a current diagnosis for this admission?: Yes (4) HTN (hypertension) Qualifiers: Hypertension type: essential hypertension Qualified Code(s): I10 - Essential (primary) hypertension Is this a current diagnosis for this admission?: Yes (5) Hypothyroidism Qualifiers: Hypothyroidism type: unspecified Qualified Code(s): E03.9 - Hypothyroidism, unspecified Is this a current diagnosis for this admission?: Yes (6) Chronic gouty arthropathy with tophi Is this a current diagnosis for this admission?: Yes (7) Chronic use of opiate drug for therapeutic purpose Is this a current diagnosis for this admission?: Yes (8) Vitamin D deficiency Is this a current diagnosis for this admission?: Yes - Time Time Spent with patient: 25-34 minutes Level of Care: IMCU - Inpatient Certification Based on my medical assessment, after consideration of the patient's comorbidities, presenting symptoms, or acuity I expect that the services needed warrant INPATIENT care.: Yes I certify that my determination is in accordance with my understanding of Medicare's requirements for reasonable and necessary INPATIENT services [42 CFR 412.3e].: Yes Medical Necessity: Significant Comorbidiites Make Outpatient Treatment Too Risky, Need Close Monitoring Due to Risk of Patient Decompensation, Need For Continuous Telemetry Monitoring, Need for IV Antibiotics, Risk of Complication if Not Cared For in Hospital, Risk of Diagnosis Which Will Require Inpatient Eval/Care/Monitoring 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
[2020-03-02] MEDS: CLINDAMYCIN HCL 150 MG CAPSULE PO SCH (21:06)
[2020-03-03] MEDS: OXYCODONE HCL IR 5 MG TABLET PO PRN ×3 (03:07→15:18)
[2020-03-03] MEDS: CLINDAMYCIN HCL 150 MG CAPSULE PO SCH ×2 (06:20→14:36)
[2020-03-03] MEDS: PANTOPRAZOLE SODIUM 40 MG TABLET.DR PO SCH (06:21)
[2020-03-03] MEDS: LEVOTHYROXINE SODIUM 0.025 MG TABLET PO SCH (06:21)
[2020-03-03] MEDS: PREGABALIN 75 MG CAPSULE PO SCH ×2 (06:21→14:36)
[2020-03-03] MEDS: NORMAL SALINE 1000 ML 1,000 ML IV PRN (06:24)
[2020-03-03] MEDS: LORATADINE 10 MG TABLET PO SCH (09:13)
[2020-03-03] MEDS: FEBUXOSTAT 40 MG TABLET PO SCH (09:13)
[2020-03-03] MEDS: LOSARTAN POTASSIUM 25 MG TABLET PO SCH (09:13)
[2020-03-03] MEDS: ASPIRIN 81 MG TABLET, ENT COATED PO SCH (09:13)
[2020-03-03] MEDS: POLYETHYLENE GLYCOL 3350 POWDER 17 GM/1 PACKET PO SCH (09:13)
[2020-03-03] MEDS: MAGNESIUM OXIDE 400 MG TABLET PO SCH (09:13)
[2020-03-03] MEDS: ENOXAPARIN SODIUM INJ 40 MG/0.4 ML DISP.SYRIN SUBCUT SCH (09:14)
[2020-03-03 11:53] VITALS: BP 128/86
--- NOTE | 2020-03-03 15:15 | PDOC DISCHARGE SUMMARY ---
Impression - Admit/DC Date/PCP Admission Date/Primary Care Provider: 02/26/20 17:33 GATO DAVIS Discharge Date: 03/03/20 - Discharge Diagnosis (1) Cellulitis of left foot Is this a current diagnosis for this admission?: Yes (2) Sepsis due to undetermined organism Is this a current diagnosis for this admission?: Yes (3) Rhabdomyolysis Is this a current diagnosis for this admission?: Yes (4) HTN (hypertension) Is this a current diagnosis for this admission?: Yes (5) Hypothyroidism Is this a current diagnosis for this admission?: Yes (6) Chronic gouty arthropathy with tophi Is this a current diagnosis for this admission?: Yes (7) Chronic use of opiate drug for therapeutic purpose Is this a current diagnosis for this admission?: Yes (8) Vitamin D deficiency Is this a current diagnosis for this admission?: Yes - Assessment Summary: Patient was admitted for right foot cellulitis, fall at home with acute rhabdomyolysis, and possible flare of his chronic gouty arthritis. He was managed with IV Clindamycin and IV fluid hydration. His presenting right foot erythema and hallux toe swelling did improved. His blood culture was no growth after five days of incubation. His elevated serum creatinine kinase did show downward trend close to normal level for our laboratory before discharge. Patient ambulate without assistance on the floor during this hospitalization. He will be discharged home today and follow up in the office as instructed upon discharge. - Additional Information Resuscitation Status: Full Code Discharge Diet: Cardiac Discharge Activity: Activity As Tolerated Referrals: GATO DAVIS MD [Primary Care Provider] - 03/15/20 10:00 am Prescriptions: Clindamycin HCl [Cleocin 150 mg Capsule] 150 mg PO Q8 #14 capsule Home Medications: Febuxostat [Uloric 40 mg Tablet] 40 mg PO DAILY 05/31/15 Aspirin [Adult Low Dose Aspirin EC] 81 mg PO DAILY 02/27/20 Ergocalciferol (Vitamin D2) [Vitamin D2] 1,250 mcg PO MO@1000 02/27/20 Indomethacin 50 mg PO TIDP PRN 02/27/20 Levothyroxine Sodium [Synthroid 0.025 mg Tablet] 25 mcg PO DAILY 02/27/20 Lidocaine/Prilocaine [Emla Cream 5 gm (Clinic Use Only)] 1 gm TOP TID 02/27/20 Loratadine [Claritin 10 mg Tablet] 10 mg PO DAILY 02/27/20 Magnesium Oxide [Mag-Ox 400 mg Tablet] 400 mg PO DAILY 02/27/20 Oxycodone HCl 10 mg PO QIDP PRN 02/27/20 Potassium Gluconate [Potassium] 600 mg PO DAILY 02/27/20 Pregabalin 150 mg PO TID 02/27/20 Telmisartan 20 mg PO DAILY 02/27/20 Tizanidine HCl 2 mg PO HSP PRN 02/27/20 Clindamycin HCl [Cleocin 150 mg Capsule] 150 mg PO Q8 #14 capsule 03/03/20 Diclofenac Sodium 1 gm TOP TIDP PRN #0 03/03/20 History of Present Illiness History of Present Illness: HEATHER SINGH is a 59 year old male patient known to my practice who was seen in the office recently and fully ambulatory without any assistance but presented to the ED via EMS with claim that he the process of getting up to stand for an assisted chair he fell to the floor and was unable to get off the floor for several hours. He reported that he had episode of urinary incontinence while on the floor but eventually was able to get up, cleaned himself up and subsequently alerted EMS for transfer to the ED. He denied any seizure activity or history of seizure. He denied associated loss of consciousness. He denied any chest pain or palpitation. He reported chronic pain and expressed concern about his chronic gouty arthritis with joint pain. Patient reported left foot pain with swelling and redness around his big toe and heel region. He reported self medication with Neosporin topically to his left foot lesions. No fever or chills. No nausea, vomiting, or abdominal pain. He denied any voiding issues to suggest ongoing urinary tract infection. His morbidities are as listed below. His initial ED evaluation was significant for leukocytosis, hypotension, with concern for sepsis. He was advised hospitalization for further evaluation and management. Hospital Course Hospital Course: Patient was admitted for right foot cellulitis, fall at home with acute rhabdomyolysis, and possible flare of his chronic gouty arthritis. He was managed with IV Clindamycin and IV fluid hydration. His presenting right foot erythema and hallux toe swelling did improved. His blood culture was no growth after five days of incubation. His elevated serum creatinine kinase did show downward trend close to normal level for our laboratory before discharge. Patient ambulate without assistance on the floor during this hospitalization. He will be discharged home today and follow up in the office as instructed upon discharge. Physical Exam Vital Signs: Temp Pulse Resp BP Pulse Ox 97.7 F 69 18 128/86 H 98 03/03/20 11:42 03/03/20 11:42 03/03/20 11:42 03/03/20 11:42 03/03/20 11:42 Intake & Output 03/02/20 03/03/20 03/04/20 06:59 06:59 06:59 Intake Total 2435 3495 480 Output Total 2500 2600 Balance -65 895 480 Weight 117.7 kg 114.8 kg General appearance: PRESENT: no acute distress, obese Head exam: PRESENT: atraumatic, normocephalic Eye exam: PRESENT: conjunctiva pink. ABSENT: pallor, scleral icterus Respiratory exam: PRESENT: clear to auscultation amanda Cardiovascular exam: PRESENT: RRR, +S1, +S2. ABSENT: diastolic murmur, rubs, systolic murmur GI/Abdominal exam: PRESENT: normal bowel sounds, soft. ABSENT: distended, guarding, mass, organomegaly, rebound, tenderness Extremities exam: PRESENT: tenderness - left foot and hallux toe to palpation Musculoskeletal exam: PRESENT: ambulatory, deformity - related to his gouty arthritis with tophi, tenderness - left foot Neurological exam: PRESENT: alert, awake, oriented to person, oriented to place, oriented to time, oriented to situation, CN II-XII grossly intact. ABSENT: motor sensory deficit Psychiatric exam: PRESENT: appropriate affect, normal mood. ABSENT: homicidal ideation, suicidal ideation Skin exam: PRESENT: dry, erythema - to medial aspect and heel region of left fo ot, warm Results Laboratory Results: WBC 6.0 10^3/uL (4.0-10.5) 03/01/20 04:33 RBC 3.55 10^6/uL (4.35-5.55) L 03/01/20 04:33 Hgb 11.3 g/dL (13.5-17.0) L 03/01/20 04:33 Hct 32.2 % (37.9-51.0) L 03/01/20 04:33 MCV 91 fl (80-97) 03/01/20 04:33 MCH 31.9 pg (27.0-33.4) 03/01/20 04:33 MCHC 35.1 g/dL (32.0-36.0) 03/01/20 04:33 RDW 13.3 % (11.5-14.0) 03/01/20 04:33 Plt Count 210 10^3/uL (150-450) 03/01/20 04:33 Lymph % (Auto) 41.5 % (13-45) 03/01/20 04:33 Runnels % (Auto) 10.2 % (3-13) 03/01/20 04:33 Eos % (Auto) 4.5 % (0-6) 03/01/20 04:33 Baso % (Auto) 1.2 % (0-2) 03/01/20 04:33 Absolute Neuts (auto) 2.6 10^3/uL (1.7-8.2) 03/01/20 04:33 Absolute Lymphs (auto) 2.5 10^3/uL (0.5-4.7) 03/01/20 04:33 Absolute Monos (auto) 0.6 10^3/uL (0.1-1.4) 03/01/20 04:33 Absolute Eos (auto) 0.3 10^3/uL (0.0-0.6) 03/01/20 04:33 Absolute Basos (auto) 0.1 10^3/uL (0.0-0.2) 03/01/20 04:33 Seg Neutrophils % 42.6 % (42-78) 03/01/20 04:33 Sodium 140.0 mmol/L (137-145) 03/01/20 04:33 Potassium 3.9 mmol/L (3.6-5.0) 03/01/20 04:33 Chloride 110 mmol/L (98-107) H 03/01/20 04:33 Carbon Dioxide 26 mmol/L (22-30) 03/01/20 04:33 Anion Gap 4 (5-19) L 03/01/20 04:33 BUN 13 mg/dL (7-20) 03/01/20 04:33 Creatinine 0.88 mg/dL (0.52-1.25) 03/01/20 04:33 Est GFR ( Amer) > 60 (>60) 03/01/20 04:33 Est GFR (MDRD) Non-Af > 60 (>60) 03/01/20 04:33 Glucose 91 mg/dL (75-110) 03/01/20 04:33 Lactic Acid 1.6 mmol/L (0.7-2.1) 02/26/20 21:15 Uric Acid 3.1 mg/dL (3.5-8.5) L 02/27/20 04:30 Calcium 8.9 mg/dL (8.4-10.2) 03/01/20 04:33 Total Bilirubin 0.3 mg/dL (0.2-1.3) 02/28/20 04:57 Direct Bilirubin 0.0 mg/dL (0.0-0.4) 02/28/20 04:57 Neonat Total Bilirubin Not Reportable 02/28/20 04:57 Neonat Direct Bilirubin Not Reportable 02/28/20 04:57 Neonat Indirect Bili Not Reportable 02/28/20 04:57 AST 67 U/L (17-59) H 02/28/20 04:57 ALT 42 U/L (<50) 02/28/20 04:57 Alkaline Phosphatase 56 U/L (38-126) 02/28/20 04:57 Creatine Kinase 322 U/L (55-170) H 03/01/20 04:33 CK-MB (CK-2) 1.10 ng/mL (<4.55) 03/01/20 04:33 Troponin I < 0.012 ng/mL 03/01/20 04:33 NT-Pro-B Natriuret Pep 195 pg/mL (<125) H 02/26/20 13:55 Total Protein 5.4 g/dL (6.3-8.2) L 02/28/20 04:57 Albumin 3.0 g/dL (3.5-5.0) L 02/28/20 04:57 Urine Color YELLOW 02/26/20 17:08 Urine Appearance CLEAR 02/26/20 17:08 Urine pH 5.0 (5.0-9.0) 02/26/20 17:08 Ur Specific [place] 1.013 02/26/20 17:08 Urine Protein NEGATIVE mg/dL (NEGATIVE) 02/26/20 17:08 Urine Glucose (UA) NEGATIVE mg/dL (NEGATIVE) 02/26/20 17:08 Urine Ketones NEGATIVE mg/dL (NEGATIVE) 02/26/20 17:08 Urine Blood MODERATE (NEGATIVE) H 02/26/20 17:08 Urine Nitrite NEGATIVE (NEGATIVE) 02/26/20 17:08 Urine Bilirubin NEGATIVE (NEGATIVE) 02/26/20 17:08 Urine Urobilinogen NEGATIVE mg/dL (<2.0) 02/26/20 17:08 Ur Leukocyte Esterase NEGATIVE (NEGATIVE) 02/26/20 17:08 Urine WBC (Auto) 2 /HPF 02/26/20 17:08 Urine RBC (Auto) 1 /HPF 02/26/20 17:08 U Hyaline Cast (Auto) 16 /LPF 02/26/20 17:08 Urine Mucus (Auto) MOD /LPF 02/26/20 17:08 Urine Ascorbic Acid NEGATIVE (NEGATIVE) 02/26/20 17:08 02/26/20 02/26/20 02/28/20 13:55 21:15 04:57 CK-MB (CK-2) 35.30 H 5.64 H Troponin I < 0.012 < 0.012 NT-Pro-B Natriuret Pep 195 H 03/01/20 04:33 CK-MB (CK-2) 1.10 Troponin I < 0.012 NT-Pro-B Natriuret Pep Impressions: Lumbar Spine X-Ray 02/26/20 15:40 IMPRESSION: Mild degenerative changes. No acute fracture. Chest X-Ray 02/26/20 15:44 IMPRESSION: NO ACUTE RADIOGRAPHIC FINDING IN THE CHEST. Plan Health Concerns: Medication and post discharge follow up. Plan of Treatment: Maintain on oral antibiotic therapy for 5 more days. Goals: Reduce risk of hospital readmission through post acute care close follow up. Stroke Is this a Stroke Patient?: No Acute Heart Failure - Is this a Heart Failure Patient?: No
--- NOTE | 2020-03-06 16:51 | Progress Note ---
Provider Note Provider Note: Response to query about sepsis Answer: Unable to determined. Blood culture was no growth. His presentation may be seen with Rhabdomyolysis as stated in my documentation.
== END 2020-03-03 15:37 | disposition home or self-care (01) | DRG 603 ==
LOC: ER 14:16 → EH 17:33 → 3W 19:04
PROVIDERS: ADMIT Internal Medicine Geriatric Medicine; ATTEND Internal Medicine Geriatric Medicine
DX: L03.116 Cellulitis of left lower limb (principal); M62.82 Rhabdomyolysis; I10 Essential (primary) hypertension; E03.9 Hypothyroidism, unspecified; M1A.9XX1 Chronic gout, unspecified, with tophus (tophi); E55.9 Vitamin D deficiency, unspecified; W01.0XXA Fall on same level from slipping, tripping and stumbling without subsequent striking against object, initial encounter; E66.9 Obesity, unspecified; F41.9 Anxiety disorder, unspecified; F31.9 Bipolar disorder, unspecified; E78.5 Hyperlipidemia, unspecified; G89.29 Other chronic pain; Y92.009 Unspecified place in unspecified non-institutional (private) residence as the place of occurrence of the external cause; Z79.891 Long term (current) use of opiate analgesic; Z79.899 Other long term (current) drug therapy; Z79.890 Hormone replacement therapy
CPT/HCPCS: 36415; 71045; 72110; 80048; 80053; 81001; 82550; 82553; 83605; 83880; 84484; 84550; 85025; 87040; 93005; 93010; 96360; 99285; J1650; J3490; J7030

== ENCOUNTER 2020-06-05 21:52 | Emergency (ER) | payer MEDICAID ==
[2020-06-05 22:50] VITALS: BP 111/74
[2020-06-05] MEDS ORDERED: DEXAMETHASONE SOD PHOS INJ 10 MG/1 ML VIAL IM ONE (23:13)
[2020-06-05] MEDS ORDERED: CLINDAMYCIN HCL 150 MG CAPSULE PO ONE (23:13)
[2020-06-05] MEDS ORDERED: DEXAMETHASONE SOD PHOSPHATE INJ 4 MG/1 ML VIAL IM ONE (23:24)
--- NOTE | 2020-06-05 23:27 | ER Document Report ---
HPI - HPI Time Seen by Provider: 06/05/20 22:56 Notes: 60-year-old male patient presents emergency department chief complaint of swelling and erythema to right foot. He denies any history of DVT or PE. Denies any injury to the area. He states this is been ongoing for the last few days. He is concerned he may have cellulitis as he does get recurrent cellulitis. Patient has an appointment with his product support rep tomorrow morning. He has not had any fever, chills, nausea, vomiting or diarrhea. - ROS Systems Reviewed and Negative: Yes All other systems reviewed and negative - CONSTITUTIONAL Constitutional: DENIES: Fever, Chills - REPRODUCTIVE Reproductive: DENIES: : - MUSCULOSKELETAL Musculoskeletal: REPORTS: Extremity pain, Swelling - With erythema Past Medical History - General Information source: Patient - Social History Smoking Status: Never Smoker Frequency of alcohol use: None Drug Abuse: None Family History: Reviewed & Not Pertinent - Past Medical History Cardiac Medical History: Reports: Hx Hypertension Denies: Hx Coronary Artery Disease, Hx Heart Attack Pulmonary Medical History: Denies: Hx Asthma, Hx Bronchitis, Hx COPD, Hx Pneumonia Neurological Medical History: Denies: Hx Cerebrovascular Accident, Hx Seizures Endocrine Medical History: Reports: Hx Hypothyroidism Renal/ Medical History: Denies: Hx Peritoneal Dialysis Musculoskeletal Medical History: Reports Hx Arthritis, Reports Hx Gout Psychiatric Medical History: Reports: Hx Anxiety, Hx Bipolar Disorder, Hx Depression - Immunizations Immunizations up to date: Yes Hx Diphtheria, Pertussis, Tetanus Vaccination: Yes Vertical Provider Document - CONSTITUTIONAL Notes: PHYSICAL EXAMINATION: GENERAL: Well-appearing, well-nourished and in no acute distress. HEAD: Atraumatic, normocephalic. EYES: Pupils equal round and reactive to light, extraocular movements intact, sclera anicteric, conjunctiva are normal. ENT: Nares patent, oropharynx clear without exudates. Moist mucous membranes. NECK: Normal range of motion, supple without lymphadenopathy LUNGS: Breath sounds clear to auscultation bilaterally and equal. No wheezes rales or rhonchi. HEART: Regular rate and rhythm without murmurs ABDOMEN: Soft, nontender, nondistended abdomen. No guarding, no rebound. No masses appreciated. Musculoskeletal: Slight swelling noted to right foot, erythema noted, no fluctuance, no induration. Strong dorsalis pedis pulse, cap refill less than 3 seconds distally. NEUROLOGICAL: Cranial nerves grossly intact. Normal speech, normal gait. Normal sensory, motor exams PSYCH: Normal mood, normal affect. SKIN: Warm, Dry, normal turgor, no rashes or lesions noted. - INFECTION CONTROL TRAVEL OUTSIDE OF THE [place] IN LAST 30 DAYS: No Course - Re-evaluation Re-evalutation: Patient appears well, nontoxic. Given patient's history of cellulitis will treat with antibiotics. At best this is a very early cellulitis. He has a fo llow-up appointment tomorrow morning with his product support rep. I gave the patient a dose of clindamycin, requested that he not fill the prescription until he see his product support rep to allow the product support rep who is more familiar with him to weigh in. Patient is agreeable to this plan. - Vital Signs Vital signs: Temp Pulse Resp BP Pulse Ox 98.1 F 71 14 111/74 94 06/05/20 22:47 06/05/20 22:47 06/05/20 22:47 06/05/20 22:47 06/05/20 22:47 Discharge - Discharge Clinical Impression: Localized swelling of right foot, Erythema of right foot Condition: Stable Disposition: HOME, SELF-CARE Additional Instructions: Please let your foot doctor know that you were here in the emergency department. It looks like you may have the starts of early cellulitis so we treated you with a dose of antibiotics. You received clindamycin here. Since you have an appointment with him at 9:00 in the morning and he is familiar with your medical history. Please have him take a look at the foot where you are having the redness and swelling. Return to the emergency department any new or worsening conditions. Prescriptions: Clindamycin HCl 300 mg PO TID #21 capsule Referrals: GATO DAVIS MD [Primary Care Provider] - Follow up as needed
== END 2020-06-05 23:37 | disposition home or self-care (01) ==
LOC: ER 21:52
DX: M79.89 Other specified soft tissue disorders (principal); L53.9 Erythematous condition, unspecified; R52 Pain, unspecified; I10 Essential (primary) hypertension; Z87.2 Personal history of diseases of the skin and subcutaneous tissue
CPT/HCPCS: 99284; 96372; J3490; J1100

== ENCOUNTER 2020-06-13 01:19 | Emergency (ER) | payer MEDICAID ==
[2020-06-13] MEDS ORDERED: NORMAL SALINE 1000 ML 1,000 ML IV ONE (02:02)
[2020-06-13] MEDS ORDERED: ACETAMINOPHEN 325 MG TABLET PO ONE (02:02)
--- NOTE | 2020-06-13 02:05 | ER Document Report ---
ED General - General Chief Complaint: Fall Stated Complaint: FALL Time Seen by Provider: 06/13/20 01:50 Primary Care Provider: GATO DAVIS MD [Primary Care Provider] - 06/14/20 Notes: Patient is a 60-year-old male who comes emergency department for chief complaint of weakness, fall, and chills. He states that he sent to the ground and around 4 PM and he states he was too weak to get up. He states that he suddenly just felt too weak and he could not get up with the ground. He denies hitting his head, denies hip pain, he denies any particular injuries. He denies focal numbness or weakness. He denies vomiting, shortness of breath, chest pain, dizziness. Per EMS report patient was on the floor for at least 4 hours. Patient has a past medical history of hypertension, hypothyroidism, anxiety/bipolar disorder, and orthopedic surgery with most recent surgery being a bunion removal on his left foot last month. TRAVEL OUTSIDE OF THE [place] IN LAST 30 DAYS: No - Related Data Allergies/Adverse Reactions: No Known Allergies Allergy (Verified 11/22/18 09:54) Past Medical History - General Information source: Patient - Social History Smoking Status: Never Smoker Frequency of alcohol use: Occasional Lives with: Alone Family History: Reviewed & Not Pertinent Patient has homicidal ideation: No - Past Medical History Cardiac Medical History: Reports: Hx Hypertension Denies: Hx Coronary Artery Disease, Hx Heart Attack Pulmonary Medical History: Denies: Hx Asthma, Hx Bronchitis, Hx COPD, Hx Pneumonia Neurological Medical History: Denies: Hx Cerebrovascular Accident, Hx Seizures Endocrine Medical History: Reports: Hx Hypothyroidism Renal/ Medical History: Denies: Hx Peritoneal Dialysis Musculoskeletal Medical History: Reports Hx Arthritis, Reports Hx Gout Psychiatric Medical History: Reports: Hx Anxiety, Hx Bipolar Disorder, Hx Depression Past Surgical History: Reports: Hx Orthopedic Surgery - Immunizations Immunizations up to date: Yes Hx Diphtheria, Pertussis, Tetanus Vaccination: Yes Review of Systems - Review of Systems Constitutional: See HPI EENT: No symptoms reported Cardiovascular: No symptoms reported Respiratory: No symptoms reported Gastrointestinal: No symptoms reported Genitourinary: No symptoms reported Male Genitourinary: No symptoms reported Musculoskeletal: No symptoms reported Skin: No symptoms reported Hematologic/Lymphatic: No symptoms reported Neurological/Psychological: See HPI Physical Exam - Vital signs Vitals: Temp 100.3 F 06/13/20 01:19 - Notes Notes: GENERAL: Patient slightly sluggish but is still awake, alert, cooperative. No signs of distress. HEAD: Normocephalic, atraumatic. EYES: Pupils equal, round, and reactive to light. Extraocular movements intact. ENT: Oral mucosa very dry, tongue midline. Oropharynx unremarkable. Airway patent. NECK: Full range of motion. Supple. Trachea midline. No lymphadenopathy. LUNGS: Clear to auscultation bilaterally, no wheezes, rales, or rhonchi. No respiratory distress. Non-tender chest wall. HEART: Borderline tachycardic, normal rhythm, no murmur ABDOMEN: Soft, non-tender. Non-distended. EXTREMITIES: Postoperative sutures over the left first MTP, no swelling, erythema, tenderness, or concerning findings otherwise. Unremarkable extremities otherwise. BACK: no cervical, thoracic, lumbar midline tenderness. No saddle anesthesia, normal distal neurovascular exam. Moves all extremities in full range of motion. NEUROLOGICAL: Alert and oriented x3. Normal speech. Cranial nerves II through XII grossly intact. Strength 5/5 in all extremities. PSYCH: Normal affect, normal mood. SKIN: Warm, dry, normal turgor. No rashes or lesions noted. Course - Re-evaluation Re-evalutation: Patient is slightly sluggish and cannot recall what happened last night clearly although he denies head injury and has no signs of trauma to the head. He denies headache, chest pain, or any complaints other than feeling generally weak and unable to get off the floor last night. Temperature of 100.3 so typically does not have a fever, this was rechecked and lower. Oxygen saturation at 92% and lowest but I took him off oxygen and he is not hypoxic. He was mildly tachycardic initially but this resolved with IV fluids. CBC shows leukocytosis with elevation of neutrophils. Nonspecific. Chest x-ray unremarkable. Troponin indeterminate, d-dimer positive, chemistry nonspecific. Urinalysis unremarkable. Urine drug screen shows benzodiazepines, cocaine, and opiates. CTA performed because of tachycardia, borderline oxygen saturation, uncertain what happened last night, and elevated d-dimer. This was completely negative. After hydration, patient was fed, after this patient became very alert, talkative, states he feels great, is requesting to leave. I suspect polysubstance abuse as the cause of patient's abnormality last night, he appears to have returned to baseline and has no complaints, vital signs unremarkable now. Patient ambulated without difficulty, hypoxia, or tachycardia. Because of borderline temperature and symptoms I offered COVID-19 testing but patient states he just had this and he refuses. 06/13/20 08:25 Troponin increased to 0.10. This is still technically below heart attack range, however this did increase from prior. However there also was 6 hours plus between these lab draws. Patient positive for cocaine. However patient has not had any chest pain, EKG without any significant changes, patient is requesting to leave. He states he will call his primary today and follow-up with him for additional testing, he states that he understands the extreme dangers of recreational drugs, he states he will only take his prescribed doses of Valium and pain medication in the future. I discussed with Dr. Collazo. He states that because patient has not had any chest pain and based on his other evaluation and work-up patient can be discharged with calling today for follow- up and return precautions and he must return immediately if he develops chest pain or any other concerning symptoms. Patient does state appreciation and agreement with this plan. - Vital Signs Vital signs: Temp Pulse Resp BP Pulse Ox 98.2 F 16 115/61 90 L 06/13/20 07:12 06/13/20 07:12 06/13/20 07:12 06/13/20 07:12 - Laboratory Result Diagrams: 06/13/20 01:37 06/13/20 01:37 Laboratory results interpreted by me: 06/13/20 06/13/20 06/13/20 01:37 01:37 01:37 WBC 15.4 H RBC 4.21 L Hgb 12.7 L Hct 37.7 L Lymph % (Auto) 11.6 L Absolute Neuts (auto) 12.2 H Seg Neutrophils % 79.4 H D-Dimer VBG pCO2 33.8 L Sodium 134.9 L Creatinine 1.27 H Est GFR (MDRD) Non-Af 58 L Glucose 120 H Urine Ketones 06/13/20 06/13/20 01:37 04:16 WBC RBC Hgb Hct Lymph % (Auto) Absolute Neuts (auto) Seg Neutrophils % D-Dimer 1.69 H VBG pCO2 Sodium Creatinine Est GFR (MDRD) Non-Af Glucose Urine Ketones TRACE H - EKG Interpretation by Me Additional EKG results interpreted by me: EKG shows sinus tachycardia at a rate of 104, first-degree AV block with DC interval 220, QTC of 421,. Inverted T wave in lead III but no T wave inversions or ST segment changes in consecutive leads. Similar to prior. Discharge - Discharge Clinical Impression: Weakness, Substance abuse Fall Qualifiers: Encounter type: initial encounter Qualified Code(s): W19.XXXA - Unspecified fall, initial encounter Condition: Stable Disposition: HOME, SELF-CARE Additional Instructions: Please call Dr. Davis today for close follow-up and additional management including potential stress testing. Do not use or take any recreational/illegal substances, take only your prescribed doses of your home medications. Return if you develop chest pain, difficulty breathing, passing out, fever, or any other concerning symptoms. Referrals: GATO DAVIS MD [Primary Care Provider] - 06/14/20
[2020-06-13 02:23] LABS: VENOUS BLOOD BASE EXCESS -3.8 mmol/L; VENOUS BLOOD HCO3 20.2 mmol/L (20-32); VENOUS BLOOD PCO2 33.8 mmHg (35-63); VENOUS BLOOD PH 7.4 (7.30-7.42)
[2020-06-13 02:26] LABS: ABSOLUTE EOSINOPHILS # (AUTO) 0.2 10^3/uL (0.0-0.6); ABSOLUTE LYMPHOCYTES (AUTO) 1.8 10^3/uL (0.5-4.7); ABSOLUTE MONOCYTES (AUTO) 1.1 10^3/uL (0.1-1.4); ABSOLUTE NEUT (AUTO) 12.2 10^3/uL (1.7-8.2); BASOPHILS % (AUTO) 0.3 % (0-2); EOSINOPHILS % (AUTO) 1.4 % (0-6); HEMATOCRIT 37.7 % (37.9-51.0); HEMOGLOBIN 12.7 g/dL (13.5-17.0); LYMPHOCYTES % (AUTO) 11.6 % (13-45); MEAN CORPUSCULAR HEMOGLOBIN 30.1 pg (27.0-33.4); MEAN CORPUSCULAR HGB CONC 33.6 g/dL (32.0-36.0); MEAN CORPUSCULAR VOLUME 90 fl (80-97); MONOCYTES % (AUTO) 7.3 % (3-13); PLATELET COUNT 302 10^3/uL (150-450); RED BLOOD COUNT 4.21 10^6/uL (4.35-5.55); RED CELL DISTRIBUTION WIDTH 13.9 % (11.5-14.0); SEGMENTED NEUTROPHILS % (AUTO) 79.4 % (42-78); TOTAL CELLS COUNTED % (AUTO) 100 %; WHITE BLOOD COUNT 15.4 10^3/uL (4.0-10.5)
[2020-06-13 02:30] LABS: ALBUMIN 3.8 g/dL (3.5-5.0); ALKALINE PHOSPHATASE 78 U/L (38-126); ANION GAP 8 (5-19); ASPARTATE AMINO TRANSFERASE 28 U/L (17-59); BILIRUBIN,DIRECT 0.4 mg/dL (0.0-0.4); BILIRUBIN,TOTAL 0.7 mg/dL (0.2-1.3); BLOOD UREA NITROGEN 16 mg/dL (7-20); CALCIUM 9.4 mg/dL (8.4-10.2); CARBON DIOXIDE 22 mmol/L (22-30); CHLORIDE 105 mmol/L (98-107); CREATINE KINASE 155 U/L (55-170); GLUCOSE 120 mg/dL (75-110); INTERNATIONAL RATION (INR) 0.96; POTASSIUM 4.5 mmol/L (3.6-5.0); TOTAL PROTEIN 6.5 g/dL (6.3-8.2)
[2020-06-13 02:32] LABS: ALCOHOL < 10 mg/dL (NONE DETECTED)
--- NOTE | 2020-06-13 03:27 | RADIOLOGY REPORT (SQ) ---
EXAM DESCRIPTION: XR CHEST 1 VIEW COMPLETED DATE/TME: 06/13/2020 02:02 CLINICAL HISTORY: 60 years, Male, fever, weakness COMPARISON: 02/26/2020 NUMBER OF VIEWS: One TECHNIQUE: Upright AP view of the chest LIMITATIONS: None. FINDINGS: Lungs are clear. The heart is at the upper limit of normal in size. There is no pneumothorax or pleural effusion. There is no acute fracture. No intraperitoneal free air. IMPRESSION: No acute cardiopulmonary abnormality. copyright 2010 [employer]- All Rights Reserved
[2020-06-13 04:54] LABS: APPEARANCE,URINE CLEAR; BILIRUBIN,URINE NEGATIVE (NEGATIVE); COLOR,URINE YELLOW; GLUCOSE, URINE NEGATIVE (NEGATIVE); KETONES,URINE TRACE mg/dL (NEGATIVE); PROTEIN,URINE NEGATIVE (NEGATIVE); URINE SPECIFIC GRAVITY 1.015; UROBILINOGEN,URINE NEGATIVE mg/dL (<2.0)
[2020-06-13 05:12] LABS: URINE AMPHETAMINES SCREEN NEGATIVE; URINE BARBITURATES SCREEN NEGATIVE; URINE MARIJUANA (THC) SCREEN NEGATIVE; URINE METHADONE SCREEN NEGATIVE; URINE PHENCYCLIDINE SCREEN NEGATIVE
[2020-06-13 05:20] LABS: URINE BENZODIAZEPINES SCREEN UNCONFIRMED POSITIVE; URINE COCAINE SCREEN UNCONFIRMED POSITIVE
--- NOTE | 2020-06-13 06:55 | RADIOLOGY REPORT (SQ) ---
CLINICAL HISTORY: fever, hypoxia, weakness. CREAT 1.27 COMPARISON: None. TECHNIQUE: CT CHEST ANGIOGRAPHY WITHOUT THEN WITH IV CONTRAST on 06/13/2020 5:27 AM CDT. MIPS reconstructions were generated. This exam was performed according to our departmental dose-optimization program, which includes automated exposure control, adjustment of the mA and/or kV according to patient size and/or use of iterative reconstruction technique. MIP images were generated. FINDINGS: Thoracic aorta is normal in course and caliber without aneurysm or dissection. Pulmonary arteries are adequately opacified without acute or chronic filling defects. The heart is moderately enlarged. There is no pericardial effusion. Intrathoracic lymph nodes are not enlarged. There is no pleural effusion, pleural thickening or pneumothorax. Central airways are patent. Lungs are clear with no consolidation, mass or interstitial lung disease. In the upper abdomen, there is a large cyst in the upper pole of the right kidney measuring at least 11.7 cm There are no acute osseous findings. No suspicious bony lesions. IMPRESSION: Cardiomegaly with no evidence of dissection or aneurysm. No pulmonary embolus. No pneumonia.
[2020-06-13 08:50] VITALS: BP 121/63
--- NOTE | 2020-06-13 17:08 | EKG REPORT ---
SEVERITY:- ABNORMAL ECG - SINUS TACHYCARDIA FIRST DEGREE AV BLOCK PROBABLE LEFT ATRIAL ABNORMALITY PROBABLE INFERIOR INFARCT, AGE INDETERMINATE : Confirmed by: Katelynn Mccann MD 13-Jun-2020 17:08:11
== END 2020-06-13 08:48 | disposition home or self-care (01) ==
LOC: ER 01:19
DX: Z04.3 Encounter for examination and observation following other accident (principal); R53.1 Weakness; F19.90 Other psychoactive substance use, unspecified, uncomplicated; I44.0 Atrioventricular block, first degree; I11.0 Hypertensive heart disease with heart failure; I50.9 Heart failure, unspecified; R68.83 Chills (without fever); R00.0 Tachycardia, unspecified; R79.89 Other specified abnormal findings of blood chemistry; D72.828 Other elevated white blood cell count; F41.9 Anxiety disorder, unspecified; Z79.899 Other long term (current) drug therapy; Z98.890 Other specified postprocedural states
CPT/HCPCS: 93005; 99285; 96360; 96361; 36415; 87040; 80307 ×2; 82550; 83605; 85025; 85610; 87077; 80053; 81001; 84484; 85379; 82803; 87150 ×26; 71045; 71275; 93010; J3490; J7030

== ENCOUNTER 2020-06-15 19:20 | Emergency (ER) | payer MEDICAID ==
--- NOTE | 2020-06-15 19:56 | ER Document Report ---
ED Medical Screen (RME) - General Chief Complaint: Numbness of Arm Stated Complaint: NUMBNESS Time Seen by Provider: 06/15/20 19:52 Primary Care Provider: GATO DAVIS MD [Primary Care Provider] - Follow up as needed Mode of Arrival: Ambulatory Information source: Patient Notes: Patient presents complaining of numbness to the left hand and forearm involving the left third fourth and fifth fingers. Patient states his numbness is been present for the past 3 months. Patient states that the symptoms have worsened today which prompted his visit here tonight. Patient reports that he did have a fall earlier this week and was seen here for a fall. I have greeted and performed a rapid initial assessment of this patient. A comprehensive ED assessment and evaluation of the patient, analysis of test results and completion of the medical decision making process will be conducted by additional ED providers. TRAVEL OUTSIDE OF THE [place] IN LAST 30 DAYS: No - Related Data Allergies/Adverse Reactions: No Known Allergies Allergy (Verified 11/22/18 09:54) Past Medical History - Social History Family history: Reviewed & Not Pertinent - Past Medical History Cardiac Medical History: Reports: Hx Hypertension Denies: Hx Coronary Artery Disease, Hx Heart Attack Pulmonary Medical History: Denies: Hx Asthma, Hx Bronchitis, Hx COPD, Hx Pneumonia Neurological Medical History: Denies: Hx Cerebrovascular Accident, Hx Seizures Endocrine Medical History: Reports: Hx Hypothyroidism Renal/ Medical History: Denies: Hx Peritoneal Dialysis Musculoskeltal Medical History: Reports Hx Arthritis, Reports Hx Gout Psychiatric Medical History: Reports: Hx Anxiety, Hx Bipolar Disorder, Hx Depression Past Surgical History: Reports: Hx Orthopedic Surgery - Immunizations Immunizations up to date: Yes Hx Diphtheria, Pertussis, Tetanus Vaccination: Yes Physical Exam - Vital signs Vitals: Temp Pulse Resp BP Pulse Ox 97.7 F 91 20 100/76 96 06/15/20 19:25 06/15/20 19:25 06/15/20 19:25 06/15/20 19:25 06/15/20 19:25 - General General appearance: Alert Notes: Patient with deliberate speech, patient hostile and argumentative with staff. Patient with numbness to the left third fourth and fifth finger and ulnar aspect of left forearm, normal range of motion to the left upper extremity. Course - Re-evaluation Re-evalutation: 06/15/20 19:55 Nurse advised of patient status. - Vital Signs Vital signs: Temp Pulse Resp BP Pulse Ox 97.7 F 91 20 100/76 96 06/15/20 19:25 06/15/20 19:25 06/15/20 19:25 06/15/20 19:25 06/15/20 19:25 Doctor's Discharge - Discharge Referrals: GATO DAVIS MD [Primary Care Provider] - Follow up as needed
--- NOTE | 2020-06-15 20:57 | RADIOLOGY REPORT (SQ) ---
INDICATION: numbness L arm. COMPARISON: None CORRELATION: None TECHNIQUE: Noncontrast spiral axial CT images were obtained through the cervical spine with multiplanar reconstructions. This exam was performed according to our departmental dose-optimization program, which includes automated exposure control, adjustment of the mA and/or kV according to patient size and/or use of iterative reconstruction techniques. FINDINGS: No acute displaced fracture is identified of the cervical spine. Alignment is anatomic. No focal alignment abnormality is identified. The uncovertebral joints and facets demonstrate mild age-appropriate osteoarthritis. Disc osteophyte complex is identified at multiple levels with focal moderate stenosis of the spinal canal at C4-C5 centrally which is presumably obliterating the ventral subarachnoid space of the thecal sac. Additionally there is asymmetric bony impingement upon the neural foramen bilaterally left greater than right at C5-C6. Surrounding soft tissues of the neck are unremarkable. The pharynx appears symmetric. Thyroid is heterogeneous. The lung apices appear grossly clear. There is significant motion artifact degrading imaging of the lung apices. Mild vascular calcification. IMPRESSION: No acute bony injury is seen to the cervical spine. Degenerative changes with moderate acquired central canal stenosis at C4-C5 and bilateral but asymmetric bony impingement upon the neural foramen left greater than right at C5-C6. These findings may be contributing to the patient's symptoms..
[2020-06-15] MEDS ORDERED: PREDNISONE 20 MG TABLET PO ONE (21:33)
--- NOTE | 2020-06-15 21:35 | ER Document Report ---
HPI - HPI Patient complains to provider of: Left hand numbness Time Seen by Provider: 06/15/20 19:52 Onset: Other - Months Onset/Duration: Persistent Pain Level: 1 Context: Patient presents complaining of left hand numbness involving the third fourth and fifth fingers and the ulnar aspect of the left forearm for the past 3 months. Patient states that the symptoms have been persistent and he wanted to get them evaluated. Patient denies any fever. Associated Symptoms: Other - Numbness to the left third fourth and fifth fingers. denies: Fever, Headache Exacerbated by: Denies Relieved by: Denies Similar symptoms previously: No Recently seen / treated by doctor: Yes - ROS ROS below otherwise negative: Yes Systems Reviewed and Negative: Yes All other systems reviewed and negative - CONSTITUTIONAL Constitutional: DENIES: Fever, Chills - NEURO Neurology: DENIES: Weakness - MUSCULOSKELETAL Musculoskeletal: REPORTS: Back Pain - Chronic low back pain Notes: Numbness to the left third fourth and fifth fingers - DERM Skin Color: Normal Skin Problems: None Past Medical History - General Information source: Patient - Social History Smoking Status: Never Smoker Frequency of alcohol use: None Drug Abuse: Cocaine Family History: Reviewed & Not Pertinent - Past Medical History Cardiac Medical History: Reports: Hx Hypertension Denies: Hx Coronary Artery Disease, Hx Heart Attack Pulmonary Medical History: Denies: Hx Asthma, Hx Bronchitis, Hx COPD, Hx Pneumonia Neurological Medical History: Denies: Hx Cerebrovascular Accident, Hx Seizures Endocrine Medical History: Reports: Hx Hypothyroidism Renal/ Medical History: Denies: Hx Peritoneal Dialysis Musculoskeletal Medical History: Reports Hx Arthritis, Reports Hx Gout Psychiatric Medical History: Reports: Hx Anxiety, Hx Bipolar Disorder, Hx Depression Past Surgical History: Reports: Hx Orthopedic Surgery - Immunizations Immunizations up to date: Yes Hx Diphtheria, Pertussis, Tetanus Vaccination: Yes Vertical Provider Document - CONSTITUTIONAL Agree With Documented VS: Yes Exam Limitations: No Limitations General Appearance: WD/WN, No Apparent Distress - INFECTION CONTROL TRAVEL OUTSIDE OF THE [place] IN LAST 30 DAYS: No - HEENT HEENT: Atraumatic, Normocephalic - NECK Neck: Normal Inspection, Supple - RESPIRATORY Respiratory: Breath Sounds Normal, No Respiratory Distress - CARDIOVASCULAR Cardiovascular: Regular Rate, Regular Rhythm Pulses: Normal: Radial - BACK Back: Normal Inspection - MUSCULOSKELETAL/EXTREMETIES Musculoskeletal/Extremeties: [place] - NEURO Level of Consciousness: Awake, Alert, Appropriate Motor/Sensory: No Motor Deficit Notes: Decreased sensation to the left hand third fourth and fifth fingers any ulnar aspect of the left forearm. Patient with 5 out of 5 muscle tone and strength to bilateral upper extremities. - DERM Integumentary: Warm, Dry, No Rash Course - Re-evaluation Re-evalutation: 06/15/20 21:[address] Petersen regarding patient CT scan report. Advises outpatient follow-up with neurosurgery and providing patient with a prescription for steroid medication at this time. No additional imaging advised. 06/15/20 21:35 Patient reports that while he was waiting his numbness symptoms resolved. Patient states that symptoms occasionally will come and go. Patient provided with a copy of his CT scan report and advised that he will need to see his primary doctor for referral to an orthopedic cardiovascular specialist. Discussed worsening signs or symptoms that patient should return immediately for. Patient verbalized understanding and is agreeable with discharge plan of care. - Vital Signs Vital signs: Temp Pulse Resp BP Pulse Ox 97.7 F 91 20 100/76 96 06/15/20 19:25 06/15/20 19:25 06/15/20 19:25 06/15/20 19:25 06/15/20 19:25 - Diagnostic Test Radiology reviewed: Image reviewed, Reports reviewed Discharge - Discharge Clinical Impression: Paresthesia of left upper extremity Condition: Stable Disposition: HOME, SELF-CARE Instructions: Arthritis ([facility]), Radiculopathy ([facility]) Additional Instructions: Return immediately for any new or worsening symptoms Followup with your primary care provider, call tomorrow to make a followup appointment Follow-up with a spinal surgeon for further evaluation, your primary doctor can make a referral for you Prescriptions: Prednisone [Deltasone 20 mg Tablet] 3 tab PO DAILY 4 Days #12 tablet Referrals: GATO DAVIS MD [Primary Care Provider] - Follow up as needed
[2020-06-16 01:58] VITALS: BP 115/78
== END 2020-06-15 22:00 | disposition home or self-care (01) ==
LOC: ER 19:20
DX: M48.02 Spinal stenosis, cervical region (principal); R20.0 Anesthesia of skin; M47.812 Spondylosis without myelopathy or radiculopathy, cervical region; M54.5 Low back pain; G89.29 Other chronic pain; I10 Essential (primary) hypertension; F14.10 Cocaine abuse, uncomplicated
CPT/HCPCS: 99285; 72125; J7512

== ENCOUNTER 2020-07-08 03:17 | Emergency (ER) | payer MEDICAID ==
[2020-07-08] MEDS ORDERED: DEXAMETHASONE SOD PHOS INJ 10 MG/1 ML VIAL IV ONE (06:56)
[2020-07-08] MEDS ORDERED: HYDROMORPHONE HCL INJ/PF 2 MG/ML AMPULE IV ONE ×2 (06:56→07:34)
[2020-07-08] MEDS ORDERED: DIPHENHYDRAMINE HCL 50 MG/ML VIAL IV ONE (06:57)
[2020-07-08] MEDS ORDERED: NORMAL SALINE 500 ML IV ONE (06:58)
--- NOTE | 2020-07-08 08:52 | ER Document Report ---
Entered by REGLA DAVIDSON SCRIBE 07/08/20 0703 Acting as scribe for:ANGELA TONG MD ED General - General Chief Complaint: Arm Pain Stated Complaint: LEFT ARM PAIN, LEFT FINGER PAIN, RIGHT FINGER PAIN Time Seen by Provider: 07/08/20 06:08 Primary Care Provider: GATO DAVIS MD [Primary Care Provider] - Follow up as needed Information source: Patient Notes: This 60 year old male patient presents to the emergency department today with pain in his left fingers 4-5. Patient states he has a pinched nerve in his left shoulder and his left fingers 4-5 feel numb. Patient states he is able to move his fingers but with pain. Patient states he visited the ED x1 week ago and had a MRI yesterday morning at [facility], which was ordered by his PCP Dr. Davis. Patient states he has an appointment on July 27 to see the results from the MRI. Patient states he is also a patient at a pain clinic and is prescribed Oxycodone and Valium for pain. TRAVEL OUTSIDE OF THE [place] IN LAST 30 DAYS: No - Related Data Allergies/Adverse Reactions: No Known Allergies Allergy (Verified 11/22/18 09:54) Past Medical History - General Information source: Patient - Social History Smoking Status: Never Smoker Cigarette use (# per day): No Family History: Reviewed & Not Pertinent - Past Medical History Cardiac Medical History: Reports: Hx Hypertension Pulmonary Medical History: Reports: Hx Sleep Apnea Endocrine Medical History: Reports: Hx Hypothyroidism Musculoskeletal Medical History: Reports Hx Arthritis, Reports Hx Gout Skin Medical History: Reports Hx Cellulitis Psychiatric Medical History: Reports: Hx Anxiety, Hx Bipolar Disorder, Hx Depression Past Surgical History: Reports: Hx Orthopedic Surgery - Immunizations Immunizations up to date: Yes Hx Diphtheria, Pertussis, Tetanus Vaccination: Yes Review of Systems - Review of Systems Constitutional: No symptoms reported EENT: No symptoms reported Cardiovascular: No symptoms reported Respiratory: No symptoms reported Gastrointestinal: No symptoms reported Genitourinary: No symptoms reported Male Genitourinary: No symptoms reported Musculoskeletal: See HPI, Other - Pain in L fingers 4-5 Skin: No symptoms reported Hematologic/Lymphatic: No symptoms reported Neurological/Psychological: No symptoms reported -: Yes All other systems reviewed and negative Physical Exam - Vital signs Vitals: Temp Pulse Resp BP Pulse Ox 97.5 F 76 16 114/84 98 07/08/20 03:24 07/08/20 03:24 07/08/20 03:24 07/08/20 03:24 07/08/20 03:24 - General General appearance: Appears well, Alert - HEENT Head: Normocephalic, Atraumatic Eyes: Normal Pupils: PERRL - Respiratory Respiratory status: No respiratory distress Chest status: Nontender Breath sounds: Normal Chest palpation: Normal - Cardiovascular Rhythm: Regular Heart sounds: Normal auscultation Murmur: No - Abdominal Inspection: Normal Distension: No distension Bowel sounds: Normal Tenderness: Nontender - Extremities General lower extremity: Normal inspection. No: Edema Notes: Left wrist is held in a brace. Able to flex and extend left fingers. Distal sensation intact. - Neurological Neuro grossly intact: Yes Cognition: Normal Orientation: AAOx4 Sara Coma Scale Eye Opening: Spontaneous Sara Coma Scale Verbal: Oriented Sara Coma Scale Motor: Obeys Commands [place] Coma Scale Total: 15 Speech: Normal - Psychological Associated symptoms: Normal affect, Normal mood - Skin Skin Temperature: Warm Skin Moisture: Dry Skin Color: Normal Course - Re-evaluation Re-evalutation: 07/08/20 08:45 Patient reports his left hand numbness and pain in his fingers greatest fourth and fifth fingers of the left hand have improved and is able to move his fingers at this time, without the degree of pain he presented with. - Vital Signs Vital signs: Temp Pulse Resp BP Pulse Ox 97.5 F 76 16 114/84 98 07/08/20 03:24 07/08/20 03:24 07/08/20 03:24 07/08/20 03:24 07/08/20 03:24 Discharge - Discharge Clinical Impression: Cervical radiculopathy due to degenerative joint disease of spine Condition: Stable Disposition: HOME, SELF-CARE Additional Instructions: You have cervical disc disease noted on prior CT scan of note there is a central canal stenosis at C4-5 and at C5-6 there is a bony impingement of the foramen left greater than right. These findings account for your symptoms that you are having in your upper extremity. Continue to follow-up with your primary care doctor and your pain management clinic. Today we have placed you on a Medrol Dosepak is to assist in controlling your radiculopathy in your left upper extremity. Prescriptions: Methylprednisolone [Medrol Dosepack (4 mg/Tab) 21 Tab/Dosepak] 4 mg PO ASDIR PRN #21 tab.ds.[id number] PRN Reason: Referrals: GATO DAVIS MD [Primary Care Provider] - Follow up as needed I personally performed the services described in the documentation, reviewed and edited the documentation which was dictated to the scribe in my presence, and it accurately records my words and actions.
[2020-07-08 09:20] VITALS: BP 113/76
== END 2020-07-08 10:01 | disposition home or self-care (01) ==
LOC: ER 03:17
DX: M54.12 Radiculopathy, cervical region (principal); M79.602 Pain in left arm; I10 Essential (primary) hypertension
CPT/HCPCS: 99284; 96361; 96374; 96375; J1200; J1170; J7040; J1100

== ENCOUNTER 2020-07-16 00:30 | Emergency (ER) | payer MEDICAID ==
--- NOTE | 2020-07-16 01:38 | ER Document Report ---
ED Medical Screen (RME) - General Chief Complaint: Hand Pain Stated Complaint: LEFT AND RIGHT HAND PAIN Time Seen by Provider: 07/16/20 01:20 Primary Care Provider: AGTO DAVIS MD [Primary Care Provider] - Follow up as needed Notes: Patient presents complaining of pain to the bilateral hands and forearms with numbness to the left third fourth and fifth fingers and the right fourth and fifth fingers. Patient states he had this pain and numbness for the past 4 to 5 months. 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 Patient states he does have a pinched nerve in the C4-6 area. Patient is followed by pain management for his chronic low back pain. Patient states he does get injections to the forearms to help with his symptoms. Patient states that he is having a flareup of his pain symptoms and is causing him to have insomnia. Patient states he was here last week and received pain medication that helped with his symptoms. Patient is seeking additional medication similar to last visit. I have greeted and performed a rapid initial assessment of this patient. A comprehensive ED assessment and evaluation of the patient, analysis of test results and completion of the medical decision making process will be conducted by additional ED providers. TRAVEL OUTSIDE OF THE [place] IN LAST 30 DAYS: No - Related Data Allergies/Adverse Reactions: No Known Allergies Allergy (Verified 11/22/18 09:54) Past Medical History - Social History Family history: Reviewed & Not Pertinent - Past Medical History Cardiac Medical History: Reports: Hx Hypertension Denies: Hx Coronary Artery Disease, Hx Heart Attack Pulmonary Medical History: Reports: Hx Sleep Apnea Denies: Hx Asthma, Hx Bronchitis, Hx COPD, Hx Pneumonia Neurological Medical History: Denies: Hx Cerebrovascular Accident, Hx Seizures Endocrine Medical History: Reports: Hx Hypothyroidism Renal/ Medical History: Denies: Hx Peritoneal Dialysis Musculoskeltal Medical History: Reports Hx Arthritis, Reports Hx Gout Skin Medical History: Reports Hx Cellulitis Psychiatric Medical History: Reports: Hx Anxiety, Hx Bipolar Disorder, Hx Depression Past Surgical History: Reports: Hx Orthopedic Surgery - Immunizations Immunizations up to date: Yes Hx Diphtheria, Pertussis, Tetanus Vaccination: Yes Physical Exam - Vital signs Vitals: Temp Pulse Resp BP Pulse Ox 97.7 F 77 18 117/71 92 07/16/20 01:05 07/16/20 01:05 07/16/20 01:05 07/16/20 01:05 07/16/20 01:05 - General General appearance: Appears well, Alert Notes: Tenderness to the bilateral hands and forearms, no edema, no erythema Course - Vital Signs Vital signs: Temp Pulse Resp BP Pulse Ox 97.7 F 77 18 117/71 92 07/16/20 01:05 07/16/20 01:05 07/16/20 01:05 07/16/20 01:05 07/16/20 01:05 Doctor's Discharge - Discharge Referrals: GATO DAVIS MD [Primary Care Provider] - Follow up as needed
[2020-07-16] MEDS ORDERED: DEXAMETHASONE SOD PHOS INJ 10 MG/1 ML VIAL IM ONE (05:35)
[2020-07-16] MEDS ORDERED: HYDROMORPHONE HCL INJ/PF 2 MG/ML AMPULE IM ONE (05:36)
--- NOTE | 2020-07-16 05:40 | ER Document Report ---
HPI - HPI Time Seen by Provider: 07/16/20 01:20 Context: Patient is a 60-year-old male who presents emergency department with a chief complaint of left wrist, fourth and fifth digit numbness. Patient states that he has a pinched nerve. CT shows that he does have nerve impingement. He had history of an MRI, which confirms this also. Patient states that he was here a few days ago and received Decadron and Dilaudid, which helped him with his pain. Patient is currently on oxycodone. He states that his pain medication is not working. He is able to move his arm. - ROS Systems Reviewed and Negative: Yes All other systems reviewed and negative - CONSTITUTIONAL Constitutional: DENIES: Fever, Chills - MUSCULOSKELETAL Musculoskeletal: REPORTS: Extremity pain - left arm; see HPI. DENIES: Swelling - DERM Skin Color: Normal Skin Problems: None Past Medical History - General Information source: Patient - Social History Smoking Status: Unknown if Ever Smoked Family History: Reviewed & Not Pertinent - Past Medical History Cardiac Medical History: Reports: Hx Hypertension Denies: Hx Coronary Artery Disease, Hx Heart Attack Pulmonary Medical History: Reports: Hx Sleep Apnea Denies: Hx Asthma, Hx Bronchitis, Hx COPD, Hx Pneumonia Neurological Medical History: Denies: Hx Cerebrovascular Accident, Hx Seizures Endocrine Medical History: Reports: Hx Hypothyroidism Renal/ Medical History: Denies: Hx Peritoneal Dialysis Musculoskeletal Medical History: Reports Hx Arthritis, Reports Hx Gout Skin Medical History: Reports Hx Cellulitis Psychiatric Medical History: Reports: Hx Anxiety, Hx Bipolar Disorder, Hx Depression Past Surgical History: Reports: Hx Orthopedic Surgery - Immunizations Immunizations up to date: Yes Hx Diphtheria, Pertussis, Tetanus Vaccination: Yes Vertical Provider Document - CONSTITUTIONAL Agree With Documented VS: Yes Exam Limitations: No Limitations General Appearance: No Apparent Distress - INFECTION CONTROL TRAVEL OUTSIDE OF THE [place] IN LAST 30 DAYS: No - HEENT HEENT: Atraumatic, Normocephalic, PERRLA - NECK Neck: Normal Inspection - RESPIRATORY Respiratory: Breath Sounds Normal, No Respiratory Distress - CARDIOVASCULAR Cardiovascular: Regular Rate, Regular Rhythm Pulses: Normal: Radial - GI/ABDOMEN Gastrointestinal: Abdomen Soft, Abdomen Non-Tender - MUSCULOSKELETAL/EXTREMETIES Musculoskeletal/Extremeties: FROM, Non-Tender - NEURO Level of Consciousness: Awake, Alert, Appropriate Motor/Sensory: No Motor Deficit, No Sensory Deficit - DERM Integumentary: Warm, Dry, No Rash Course - Re-evaluation Re-evalutation: 07/16/20 05:37 Capillary refill less than 3 seconds. Radial pulse 2+. No vascular compromise noted. At this time, we will give the patient a dose of pain medicine and Decadron. Explained to the patient that he needs to stop making a habit of using the emergency department for his chronic pain. Advised him that he needs to follow-up with pain management in regards to this. Advised him to see if he can make an earlier appointment for the spine surgeon and to tell them that his pain medication is not working. Follow-up precautions were given. Verbal discharge instructions were given to the patient. They verbalized understanding. They are stable for discharge. - Vital Signs Vital signs: Temp Pulse Resp BP Pulse Ox 97.7 F 77 18 117/71 92 07/16/20 01:05 07/16/20 01:05 07/16/20 01:05 07/16/20 01:05 07/16/20 01:05 Discharge - Discharge Clinical Impression: Chronic use of opiate drug for therapeutic purpose Arm pain Qualifiers: Laterality: left Qualified Code(s): M79.602 - Pain in left arm Condition: Stable Disposition: HOME, SELF-CARE Additional Instructions: You were seen today in the emergency department for left arm/wrist/finger pain. This is due to the chronic changes of your neck. 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 Contact pain management and let them know that you were here in the emergency department and that your pain medication is not working. Please do not make it a habit of coming to the emergency department for your chronic pain. Referrals: GATO DAVIS MD [Primary Care Provider] - Follow up in 1 month
[2020-07-16 06:22] VITALS: BP 120/69
== END 2020-07-16 06:10 | disposition home or self-care (01) ==
LOC: ER 00:30
DX: G89.29 Other chronic pain (principal); M79.602 Pain in left arm; Z79.891 Long term (current) use of opiate analgesic; I10 Essential (primary) hypertension
CPT/HCPCS: 99284; 96372; J1170; J1100

== ENCOUNTER 2020-08-21 07:15 | Day surgery (SDC) | payer MEDICAID ==
[2020-08-21] MEDS ORDERED: PROPOFOL INJ 200 MG/20 ML VIAL IV ONE (07:29)
[2020-08-21] MEDS ORDERED: LIDOCAINE 2% INJ (20 MG/ML) 20 ML MDV ONE (07:29)
[2020-08-21 08:43] VITALS: BP 132/87
--- NOTE | 2020-08-21 08:52 | Operative Report ---
Operative Report DATE OF SURGERY: 08/21/20 Operative Report: The risk, benefits and alternatives of the procedure including the risk of bleeding, perforation requiring surgery have been explained to the patient in detail and informed consent has been obtained. Patient is placed in left, lateral decubital position. Timeout was called. Propofol medication is administered. Rectal examination is done which did not reveal any masses, tears or fissures. An Olympus videoscope was introduced into the patient's rectum. Scope was then carefully advanced all the way to the cecum. Cecum was identified by the usual anatomical landmarks including the ileocecal valve as well as the appendiceal office. Photodocumentation is obtained. Scope was then sequentially pulled back via the various segments of the colon including the ascending colon, hepatic flexure, transverse colon, splenic flexure, descending colon finding to the rectosigmoid portions of the colon. Retroflexion maneuver is performed. PREOPERATIVE DIAGNOSIS: Colorectal cancer screening POSTOPERATIVE DIAGNOSIS: Possible thickening at the IC valve status post biopsy. Diverticulosis. Internal hemorrhoids OPERATION: Colonoscopy with biopsy SURGEON: SURI AVENDAÑO ANESTHESIA: LMAC TISSUE REMOVED OR ALTERED: As noted above. COMPLICATIONS: None. ESTIMATED BLOOD LOSS: None. INTRAOPERATIVE FINDINGS: As noted above. PROCEDURE: Patient tolerated the procedure well. No immediate postprocedure complications are noted. Patient is discharged in good condition. Discharge date 08/21/2020. Discharge diet: Regular. Discharge activity: Regular. 2 to 3-week follow-up to discuss findings. Wait on pathology. If biopsies are -10-year surveillance colonoscopy.
== END 2020-08-21 08:40 | disposition home or self-care (01) ==
LOC: END 07:15
PROVIDERS: ATTEND Internal Medicine Gastroenterology
DX: K63.5 Polyp of colon (principal); K57.90 Diverticulosis of intestine, part unspecified, without perforation or abscess without bleeding; K64.8 Other hemorrhoids; Z03.818 Encounter for observation for suspected exposure to other biological agents ruled out; Z79.899 Other long term (current) drug therapy
CPT/HCPCS: 45380; 87635; 88305 ×2; 00812; J3490; J2704; C9803; 812